=== PATIENT | female | born 1990 | race Caucasian/White ===

== ENCOUNTER 2016-05-21 17:20 | Inpatient (IN) | payer MEDICAID ==
[~2016-05-21] VITALS: Ht 160 cm; Wt 96.0 kg
[~2016-05-21 17:20] MED LIST: PREN-39 PO
[2016-05-21 17:48] VITALS: BP 131/76; PULSE 78; RESP 18
[2016-05-21 20:29] LABS: ADD UMIC YES; URINE BILIRUBIN (Dip) NEGATIVE (NEGATIVE); URINE BLOOD (Dip) NEGATIVE (NEGATIVE); URINE COLOR LT. YELLOW (YELLOW); URINE GLUCOSE (Dip) NEGATIVE (NEGATIVE); URINE KETONES (Dip) NEGATIVE (NEGATIVE); URINE LEUKOCYTE ESTERASE (Dip) 1+ (NEGATIVE); URINE NITRITE (Dip) NEGATIVE (NEGATIVE); URINE TOTAL PROTEIN (Dip) NEGATIVE (NEGATIVE); URINE UROBILINOGEN (Dip) 0.2 E.U./dL (0.1-1.0)
[2016-05-21] MEDS ORDERED: HYDROCODONE/APAP (5/325) TAB PO ONE (20:30)
[2016-05-21 20:53] LABS: BACTERIA,URINE MODERATE; SQUAMOUS EPITHELIAL CELL,UR FEW
[2016-05-21 20:54] LABS: URINE RBCS NONE SEEN /HPF (0)
--- NOTE | 2016-05-21 22:18 | HP ---
Date/Time of Note Date/Time of Note DATE: 05/21/16 TIME: 22:12 OB - History Hx of Present Free Text/Dictation 26 Year-old with SIUP at 36 2/7 wks with h/o precipitous labor presents with a chief complaint of ucs and possible SROM. She has been receiving her care with Dr. Brice. She states good movement. She denies nausea, vomiting, shortness of breath, chest pain, and abdominal pain between contractions, headache, visual changes, vaginal bleeding. Estimated Due Date: Jun 15, 2016 : 4 Para: 3 Spontaneous : 0 Therapeutic : 0 Care: Good Care Ultrasounds: Normal mid trimester US Past Family/Social History * Past Medical, Surgical, Family and Obstetric Histories reviewed from chart. Blood Type: O+ Rubella: immune RPR/VDRL: Negative GBS Status: Unknown HBsAG: Negative OB Admission Exam Vital Signs Vital Signs Vital Signs Date Time Temp Pulse Resp B/P Pulse Ox O2 Delivery O2 Flow Rate FiO2 05/21/16 17:48 98.5 78 18 131/76 97 Room Air Physical Exam HEENT: WNL Heart: Rhythm Normal Lungs: Clear Abdomen: WNL Extremities: Normal Cervical Dilatation: 2cm Effacement: 50% Station: -2 Membranes: Intact Heart Rate: 140's Accelerations: Accelerations Present Decelerations: No Decelerations Varibility: Moderate Contractions on Admission: < 5 Minutes Apart Intensity: Moderate OB Assessment/Plan Other plan: 26 Year-old with SIUP at 36 2/7 wks with h/o precipitous labor presents with ucs and cx changes in 2 hrs interval. - FHR: No sign of metabolic acidosis- Category I - Continious EFM, toco - CBC, blood type and screen - Analgesia options with R/B/A discussed in detail with patient - Epidural per patient request - Please see the orders - O+/Rubella: Immune/GBS: unknown, start PCN for GBS prophylaxis Admission, procedures, expectations, risks and possible complications have been discussed in detail with the patient. Risk of vaginal delivery including but not limited to bleeding, infection, cervical laceration, placental retention, injury to fetus, blood transfusion, blood transfusion related infection, risk of anesthesia, adhesion, cervical laceration, episiotomy/laceration, possible delivery with risk of bleeding, infection, injury to other organs ( bowel, bladder, ureter, vessels, nerves), injury to fetus, blood transfusion, blood transfusion related infection, risk of anesthesia, scar and hernia formation, needs for future , removal of uterus or any other indicated surgery discussed with the patient. She expressed understanding and repeats the risks. All of her questions were answered; all appropriate consents will be signed. PHYSICIAN'S VERIFICATION OF INFORMED CONSENT: The patient was counseled regarding the procedure, its indications, risks, potential complications and alternatives and any questions were answered. Consent was obtained. PLANNED PROCEDURE/TREATMENT: Vaginal delivery with possible vacuum/forceps delivery episiotomy, repair of laceration possible delivery PHYSICIAN'S VERIFICATION OF INFORMED CONSENT FOR BLOOD TRANSFUSION: There is a reasonable possibility that blood transfusion will be necessary as a result of the patient's procedure. I have discussed the following with the patient/patient's legal telemarketing sales representative: An explanation of the benefits and risks of the transfusion of blood or blood products and the possible alternatives. Al questions have been answered to the patient's/patients legal representatives satisfaction. INFORMED CONSENT: The patient has been informed of: - The nature of the proposed care, treatment, services, medic- Potential benefits, risks or side effects, including potential problems related to recuperation. - The likelihood of achieving care treatment and service goals. - Reasonable alternatives to the proposed care, treatment and service. - The relevant risks, benefits and side effects related to alternatives, including the possible results of not receiving care, treatment and services. - When indicated, any limitations on the confidentiality of information learned from or about the patient. - If appropriate, the risks, benefits and alternatives of the drugs to be used for sedation/analgesia including moderate sedation. - If appropriate, patient has been provided information on the risks, benefits and alternatives to the transfusion of blood and/or blood products. EVER ARAYA May 21, 2016 22:18
[2016-05-21] MEDS ORDERED: CARBOPROST 250 MCG INJ IM PRN (22:30)
[2016-05-21] MEDS ORDERED: LIDOCAINE 1% (MPF) 30 ML INJ INJ PRN (22:30)
[2016-05-21] MEDS ORDERED: AMPICILLIN 2 GM/NS (PMX) 100 ML IV ONE (22:30)
[2016-05-21] MEDS ORDERED: BUTORPHANOL 2 MG INJ IV PRN (22:30)
[2016-05-21] MEDS ORDERED: LACTATED RINGER'S 1,000 ML IV PRN (22:30)
[2016-05-21] MEDS ORDERED: IBUPROFEN 600 MG TAB PO PRN (22:30)
[2016-05-21] MEDS ORDERED: MISOPROSTOL 200 MCG TAB PR PRN (22:30)
[2016-05-21] MEDS ORDERED: OXYTOCIN 30 UNITS/LR 500 ML IV SCH ×2 (22:30)
[2016-05-21] MEDS ORDERED: METHYLERGONOVINE 0.2 MG INJ IM PRN (22:30)
[2016-05-21] MEDS ORDERED: OXYTOCIN 30 UNITS/LR 500 ML IV PRN (22:30)
[2016-05-21] MEDS: LACTATED RINGER'S 1,000 ML IV SCH (22:48)
[2016-05-21 23:16] LABS: ADD SCAN DIFF NO
[2016-05-21 23:23] LABS: BASOPHILS % 0.1 % (0.0-2.0); EOSINOPHILS # 0.1 10^3/ul (0.0-0.5); HEMOGLOBIN 12.8 g/dl (12.0-16.0); LYMPHOCYTES # 2.5 10^3/ul (0.8-2.9); LYMPHOCYTES % 31.9 % (15.0-51.0); MEAN CORPUSCULAR HEMOGLOBIN 28.4 pg (29.0-33.0); MEAN CORPUSCULAR HGB CONC 32.8 g/dl (32.0-37.0); MEAN CORPUSCULAR VOLUME 86.5 fl (82.0-101.0); MEAN PLATELET VOLUME 10.8 fl (7.4-10.4); MONOCYTE # 0.6 10^3/ul (0.3-0.9); MONOCYTES % 7.1 % (0.0-11.0); NEUTROPHIL # 4.6 10^3/ul (1.6-7.5); NEUTROPHILS % 59.5 % (39.0-77.0); PLATELET COUNT 202 10^3/UL (140-415); RED BLOOD COUNT 4.51 10^6/ul (4.20-5.40); RED CELL DISTRIBUTION WIDTH 13.1 % (11.5-14.5); WHITE BLOOD COUNT 7.8 10^3/ul (4.8-10.8)
[2016-05-21 23:31] LABS: INR 0.94; PROTIME 12.6 Sec (12.2-14.2)
[2016-05-21 23:32] LABS: PARTIAL THROMBOPLASTIN TIME 28.3 Sec (25.0-35.0)
[2016-05-22] MEDS: AMPICILLIN 1 GM/NS (PMX) 50 ML IV SCH ×2 (02:13→06:27)
[2016-05-22] MEDS: LACTATED RINGER'S 1,000 ML IV SCH ×4 (06:08→23:43)
[2016-05-22] MEDS ORDERED: TERBUTALINE 1 MG/ML INJ SC ONE ×2 (09:30→16:30)
[2016-05-22] MEDS: BETAMET NA PHOS/AC(6 MG/ML) 5ML INJ IM SCH ×2 (09:40→21:01)
[2016-05-22] MEDS ORDERED: NIFEdipine 10 MG CAP PO ONE (16:30)
--- NOTE | 2016-05-22 18:18 | QN ---
Documentation Comment Patient has decreased her uterine contractions and had no cervical change. will continue Nifedipine and observe X 24 hours SAM SANDY MD May 22, 2016 18:18
[2016-05-22] MEDS: NIFEdipine 10 MG CAP PO SCH ×2 (18:36→23:40)
[2016-05-23] MEDS: NIFEdipine 10 MG CAP PO SCH ×3 (05:49→18:08)
[2016-05-23] MEDS: LACTATED RINGER'S 1,000 ML IV SCH ×2 (07:22→15:39)
--- NOTE | 2016-05-23 18:05 | QN ---
Documentation Comment patient has stopped U/C will D/C home SAM SANDY MD May 23, 2016 18:05
--- NOTE | 2016-05-23 18:08 | DS ---
Date/Time of Note Date/Time of Note DATE: 05/23/16 TIME: 18:07 Obstetrical Discharge Record Final Diagnosis Final Diagnosis: not delivered Other Final Diagnosis uterine contractions Complications Tocolytics: Terbutaline, Other (Nifedipine ) Condition on Discharge Physical Assessment Voiding: Yes Bowel Movement: Yes Breast: Soft, non-tender, Filling Fundus: Other (gravid ) Abdomen and Incision: gravid Episiotomy: NA Calf Tenderness: No Patient Condition: Good SAM SANDY MD May 23, 2016 18:08
--- NOTE | 2016-05-23 18:11 | PD.PPDC ---
BLOWER INSULATOR Discharge Instruction Provider Information Physician Information 26 y/o female AT 36 WEEKS WITH LABOR Diagnosis Final Diagnosis: pretrm labor Condition Patient Condition: Good Diet Diet: Resume Regular Diet Activity/Restrictions Activity: Bedrest May Shower Restrictions: No Exercising No Lifting Nothing in the Vagina Follow-up Follow-up with Physician: 1, Day/Days (in clinic) Return to clinic for EXECUTIVE DIRECTOR OF NURSING Instructions: Worsening abdominal pain SAM SANDY MD May 23, 2016 18:11
[2016-05-23] MEDS ORDERED: NIFEdipine PO (18:15)
== END 2016-05-23 18:20 | disposition home or self-care (01) | DRG 778 ==
LOC: L-D 17:20 → OBT 17:20 → L-D 22:00
PROVIDERS: ADMIT Obstetrics & Gynecology; ATTEND Obstetrics & Gynecology
DX: O60.03 Preterm labor without delivery, third trimester (principal); Z3A.36 36 weeks gestation of pregnancy
CPT/HCPCS: 36415; 81001; 81003; 84112; 85025; 85610; 85730; 86592; 86900; 86901; 87340; G0463; J0290; J0702; J3105; J7120

== ENCOUNTER 2016-05-25 16:46 | Inpatient (IN) | payer MEDICAID ==
[~2016-05-25] VITALS: Ht 157.5 cm; Wt 99.1 kg
[~2016-05-25 16:46] MED LIST changes: +NIFEdipine PO; -PREN-39 PO
[2016-05-25 16:52] VITALS: Ht 157.5 cm; Wt 99.1 kg
--- NOTE | 2016-05-25 17:33 | RADRPT ---
PROCEDURE: US OB biophysical profile. CLINICAL INDICATION: Rupture TECHNIQUE: Multiple sonographic images of the pelvis were obtained. The images were reviewed on a PACS workstation. COMPARISON: Obstetrical ultrasound from 02/20/2016 FINDINGS: There is a single viable intrauterine gestation. Cardiac activity is present with 139 beats per min helen. There is a vertex presentation. The placenta is fundal. There is no evidence of placental abruption. There is a low amount of amniotic fluid with an GEORGE = 6.7 cm. Biophysical profile: movement 2/2 tone 2/2. breathing 2/2 GEORGE 2/2 Total 10/30 RPTAT: AA . IMPRESSION: Normal biophysical profile. Low GEORGE of 6.7 cm. Physician Kiet Date Time Electronically viewed and signed by Physician Kiet on 05/25/2016 17:33 /
--- NOTE | 2016-05-25 17:38 | RADRPT ---
PROCEDURE: US OB CLINICAL INDICATION: RUPTURED TECHNIQUE: Multiple sonographic images of the pelvis were obtained. The images were reviewed on a PACS workstation. COMPARISON: Obstetrical ultrasound from 02/20/2016 FINDINGS: The cervix is not well visualized. There is a single viable intrauterine gestation. Cardiac activity is present with 152 beats per minute. There is a vertex presentation. The placenta is fundal. There is no evidence for an abruption or placenta previa. There is a low amount of amniotic fluid with an GEORGE = 6.7 cm. Measurements were made in order to determine age. The results are as follows (cm): BPD =8.91 (36 weeks, 0 days) HC =32.22 (36 weeks, 3 days) AC =35.71 (39 weeks, 4 days) FL =7.11 (36 weeks, 3 days) FL/BPD = 79.9 (normal: 71.0 - 87.0) HC/AC = 0.90 (normal: 0.92 - 1.05) FL/AC = 19.9 (normal: 20.0 - 24.0) Estimated gestational age by ultrasound of approximately 37 weeks, 1 day. The estimated date of delivery by ultrasound is 06/14/2016. Estimated gestational age by LMP of approximately 37 weeks, 0 days. The estimated date of delivery by LMP is 06/15/2016. EFW = 3398 grams (83rd percentile) IMPRESSION: Single viable intrauterine gestation of approximately 37 weeks, 1 day . The estimated date of delivery is 06/14/2016 . Dating by ultrasound is within 1 day of dating by LMP. Dating by BPD yields a gestational age of 36 weeks, 0 days while dating by AC yields a gestational a ge of 39 weeks, 4 days. The HC/AC and FL/AC ratios are minimally below normal, as above. Estimated weight is in the 83rd percentile. Low - normal GEORGE of 6.7 cm. Cephalic presentation. RPTAT: EE Physician Kiet Date Time Electronically viewed and signed by Austyn Ortiz Physician on 05/25/2016 17:37 RA/
[2016-05-25 17:41] VITALS: BP 130/80; PULSE 80; RESP 20
[2016-05-25] MEDS: LACTATED RINGER'S 1,000 ML IV SCH (18:55)
--- NOTE | 2016-05-25 20:19 | TRIAGE ---
OB Triage Datetime Report Generated by CPN: 05/25/2016 20:18 Datetime: 05/25/2016 20:10 Comments: SITTING UP TO EAT DINNER Datetime: 05/25/2016 20:02 Temperature Route: Oral Pain Assessment Pain Scale: 0 Pain Goal: 0 Datetime: 05/25/2016 19:46 Comments: TO ROOM 270 PER W/CH Datetime: 05/25/2016 19:40 Stage of : OB Triage Labor Evaluation Frequency: 5 Monitor Mode: External Duration (sec)2399: 60-110 Quality: Mild Pattern: Normal: <= 5 Contractions in 10 Minutes Resting Tone Elwin: Relaxed Heart Rate FHR Baseline Rate: 145 Monitor Mode: External US FHR Baseline Changes: No Baseline Change Variability: Moderate 6-25 bpm Accelerations: 15X15 Decelerations: None Category: Category I Datetime: 05/25/2016 19:13 Pain Presence: None/Denies Datetime: 05/25/2016 19:12 Assessment Type: Triage Maternal Assessment Level of Consciousness: Fully Conscious DTR's/Clonus: DTRs 2+; No Clonus Headache: Denies Blurred Vision: No Respiratory Effort: Unlabored; Regular Rhythm; Equal Expansion Breath Sounds, Left: Clear and Equal Breath Sounds, Right: Clear and Equal Nausea/Vomiting: Denies RUQ Epigastric Pain: Denies Lower Extremities Edema: Bilateral Lower Extremities Degree: 2+ Upper Extremities Edema: Bilateral Upper Extremities Degree: 1+ Facial Edema: None Fall Risk Assessment History of Falling: (0) No Secondary Diagnosis: (0) No Ambulatory Aid: (0) Bedrest/Nurse Assist IV Therapy: (0) No Gait: (0) Normal/Bedrest/Immobile Mental Status: (0) Oriented to Own Ability Fall Score: 0 Fall Risk Score Definition: No Risk: No action required Datetime: 05/25/2016 19:02 Monitor Mode: External Duration (sec)2399: 6-7 Quality: Mild Pattern: Normal: <= 5 Contractions in 10 Minutes Intensity IUP (mmHg): 80-90 Resting Tone Elwin: Relaxed Heart Rate FHR Baseline Rate: 145 Monitor Mode: External US FHR Baseline Changes: No Baseline Change Variability: Moderate 6-25 bpm Accelerations: 15X15 Decelerations: None Category: Category I Datetime: 05/25/2016 18:32 Labor Evaluation Frequency: 6-7 Monitor Mode: External Duration (sec)2399: 80-90 Quality: Moderate Pattern: Normal: <= 5 Contractions in 10 Minutes Resting Tone [place]: Relaxed Heart Rate FHR Baseline Rate: 145 Monitor Mode: External US FHR Baseline Changes: No Baseline Change Variability: Moderate 6-25 bpm Accelerations: 15X15 Decelerations: Early; Late Category: Category II Datetime: 05/25/2016 18:30 Stage of : OB Triage Vaginal Exam Dilatation (cms): 0.5 Exam By: DR BLILINGS Membrane Status: Intact (Annotations: INTACT PER DR BILLINGS) Datetime: 05/25/2016 17:30 Stage of : OB Triage Labor Evaluation Frequency: IRREG Monitor Mode: External Duration (sec)2399: 70-80 Quality: Mild Pattern: Normal: <= 5 Contractions in 10 Minutes Resting Tone [place]win: Relaxed Heart Rate FHR Baseline Rate: 140 Monitor Mode: External US Variability: Moderate 6-25 bpm Accelerations: 15X15 Decelerations: None Category: Category I Datetime: 05/25/2016 17:08 Membrane Status: Ruptured Membranes Rupture Method: Spontaneous Amniotic Fluid Color: Clear Amniotic Fluid Amount: Large Nitrazine: Positive Datetime: 05/25/2016 17:05 Time of Arrival: 05/25/2016 16:45 EGA: 37.0 Arrived By: Ambulatory Arrived From: Home Chief Complaint: LEAKING SINCE 163905/25/16 (Annotations: Data stored by CPN on behalf of user) Movement: Present Contractions: Denies/Absent Rupture of Membranes: Ruptured (Annotations: Data stored by CPN on behalf of user) Vaginal Bleeding: None Vaginal Discharge: Denies Recent Sexual Intercouse: Denies Abdominal Trauma: Not Applicable Patient Complaints: Other Time Provider Notified: 05/25/2016 17:10 Provider Notified: AWA Initial Plan: SVE, MONITORING, CALL OB FOR FURTHER ORDERS Datetime: 05/25/2016 17:02 Stage of : OB Triage Assessment Type: Triage Maternal Assessment Level of Consciousness: Fully Conscious DTR's/Clonus: DTRs 2+; No Clonus Headache: Denies Blurred Vision: No Respiratory Effort: Unlabored; Regular Rhythm; Equal Expansion Breath Sounds, Left: Clear and Equal Breath Sounds, Right: Clear and Equal Nausea/Vomiting: Denies RUQ Epigastric Pain: Denies Lower Extremities Edema: Bilateral Lower Extremities Degree: 2+ Upper Extremities Edema: Bilateral Upper Extremities Degree: 1+ Facial Edema: None Fall Risk Assessment History of Falling: (0) No Secondary Diagnosis: (0) No Ambulatory Aid: (0) Bedrest/Nurse Assist IV Therapy: (0) No Gait: (0) Normal/Bedrest/Immobile Mental Status: (0) Oriented to Own Ability Fall Score: 0 Fall Risk Score Definition: No Risk: No action required Datetime: 05/25/2016 16:59 Vaginal Exam Dilatation (cms): 3.0 Effacement (%): 60 Station: -3 Exam By: ADRIENNE AWAN Cervix, Consistency: Moderate Cervix, Position: Posterior Presentation 'A': Cephalic Datetime: 05/23/2016 18:06 Labor Evaluation Frequency: 0 Monitor Mode: External Contraction Comments: DENIES FEELING ANY UC'S Heart Rate FHR Baseline Rate: 130 Monitor Mode: External US FHR Baseline Changes: No Baseline Change Variability: Moderate 6-25 bpm Accelerations: 15X15 Decelerations: None Category: Category I Pain Presence: None/Denies Datetime: 05/23/2016 17:12 Labor Evaluation Frequency: 0 Monitor Mode: External Heart Rate FHR Baseline Rate: 130 Monitor Mode: External US FHR Baseline Changes: No Baseline Change Variability: Moderate 6-25 bpm Accelerations: 15X15 Decelerations: None Category: Category I Pain Presence: None/Denies Datetime: 05/23/2016 16:14 Stage of : Labor Labor Evaluation Frequency: 0 Monitor Mode: External Resting Tone [place]: Relaxed Heart Rate FHR Baseline Rate: 135 Monitor Mode: External US Variability: Moderate 6-25 bpm Accelerations: 15X15 Decelerations: None Category: Category I Pain Presence: None/Denies Pain Type: N/A Datetime: 05/23/2016 15:23 Labor Evaluation Frequency: 0 Monitor Mode: External Pattern: Normal: <= 5 Contractions in 10 Minutes Resting Tone [place]: Relaxed Heart Rate FHR Baseline Rate: 145 Monitor Mode: External US Variability: Moderate 6-25 bpm Accelerations: 15X15 Decelerations: None Category: Category I Pain Presence: None/Denies Pain Type: N/A Datetime: 05/23/2016 14:20 Stage of : Labor Labor Evaluation Frequency: 0 Monitor Mode: External Pattern: Normal: <= 5 Contractions in 10 Minutes Resting Tone [place]: Relaxed Heart Rate FHR Baseline Rate: 145 Monitor Mode: External US Variability: Moderate 6-25 bpm Accelerations: 15X15 Decelerations: None Category: Category I Datetime: 05/23/2016 12:58 Stage of : Labor Labor Evaluation Frequency: 0 Monitor Mode: External Pattern: Normal: <= 5 Contractions in 10 Minutes Resting Tone [place]: Relaxed Heart Rate FHR Baseline Rate: 145 Monitor Mode: External US Variability: Moderate 6-25 bpm Accelerations: 15X15 Decelerations: None Pain Presence: None/Denies Pain Type: N/A Membrane Status: Intact Datetime: 05/23/2016 11:51 Stage of : Labor Labor Evaluation Frequency: 0 Monitor Mode: External Resting Tone [place]: Relaxed Heart Rate FHR Baseline Rate: 135 Monitor Mode: External US FHR Baseline Changes: No Baseline Change Variability: Moderate 6-25 bpm Accelerations: 15X15 Decelerations: None Category: Category I Pain Presence: None/Denies Pain Type: N/A Datetime: 05/23/2016 11:25 Stage of : Labor Labor Evaluation Frequency: 0 Monitor Mode: External Resting Tone [place]: Relaxed Heart Rate FHR Baseline Rate: 135 Monitor Mode: External US Accelerations: 15X15 Decelerations: None Category: Category I Pain Presence: None/Denies Pain Type: N/A Datetime: 05/23/2016 10:26 Stage of : Labor Labor Evaluation Frequency: 0 Monitor Mode: External Pattern: Normal: <= 5 Contractions in 10 Minutes Resting Tone [place]: Relaxed Heart Rate FHR Baseline Rate: 135 Monitor Mode: External US Accelerations: 15X15 Decelerations: None Category: Category I Datetime: 05/23/2016 09:23 Stage of : Labor Labor Evaluation Frequency: 1-9 Duration (sec)2399: 30-40 Pattern: Normal: <= 5 Contractions in 10 Minutes Resting Tone [place]: Relaxed Heart Rate FHR Baseline Rate: 125 Monitor Mode: External US Variability: Moderate 6-25 bpm Accelerations: 15X15 Decelerations: None Category: Category I Pain Presence: None/Denies Pain Type: N/A Datetime: 05/23/2016 08:04 Stage of : Labor Labor Evaluation Frequency: X1 Monitor Mode: External Duration (sec)2399: 30 Resting Tone [place]: Relaxed Heart Rate FHR Baseline Rate: 125 Monitor Mode: External US Variability: Moderate 6-25 bpm Accelerations: 15X15 Decelerations: None Category: Category I Pain Presence: None/Denies Pain Type: N/A Datetime: 05/23/2016 07:13 Stage of : Labor Assessment Type: Ongoing Assessment Maternal Assessment Level of Consciousness: Fully Conscious DTR's/Clonus: DTRs 2+; No Clonus Headache: Denies Blurred Vision: No Respiratory Effort: Unlabored; Regular Rhythm; Equal Expansion Breath Sounds, Left: Clear and Equal Breath Sounds, Right: Clear and Equal Nausea/Vomiting: Denies RUQ Epigastric Pain: Denies Lower Extremities Edema: None Degree: None Upper Extremities Edema: None Degree: None Facial Edema: None Fall Risk Assessment History of Falling: (0) No Secondary Diagnosis: (0) No Ambulatory Aid: (0) Bedrest/Nurse Assist IV Therapy: (0) No Gait: (0) Normal/Bedrest/Immobile Mental Status: (0) Oriented to Own Ability Fall Score: 0 Fall Risk Score Definition: No Risk: No action required Labor Evaluation Frequency: X1 Monitor Mode: External Duration (sec)2399: 30-40 Pattern: Normal: <= 5 Contractions in 10 Minutes Resting Tone [place]: Relaxed Heart Rate FHR Baseline Rate: 135 Monitor Mode: External US Variability: Moderate 6-25 bpm Accelerations: 15X15 Decelerations: None Category: Category I Pain Assessment Pain Scale: 0 Pain Presence: None/Denies Pain Type: N/A Pain Goal: 0 Datetime: 05/23/2016 07:00 Labor Evaluation Frequency: NONE Monitor Mode: External Resting Tone [place]: Relaxed Heart Rate FHR Baseline Rate: 130 Monitor Mode: External US Variability: Moderate 6-25 bpm Accelerations: 15X15 Decelerations: None Category: Category I Pain Assessment Pain Scale: 0 Pain Presence: None/Denies Pain Type: N/A Datetime: 05/23/2016 06:00 Labor Evaluation Frequency: NONE Monitor Mode: External Resting Tone [place]: Relaxed Heart Rate FHR Baseline Rate: 130 Monitor Mode: External US Variability: Moderate 6-25 bpm Accelerations: 15X15 Decelerations: None Category: Category I Datetime: 05/23/2016 05:48 Temperature Route: Oral Pain Assessment Pain Scale: 0 Pain Presence: None/Denies Pain Type: N/A Datetime: 05/23/2016 05:00 Labor Evaluation Frequency: NONE Monitor Mode: External Resting Tone [place]: Relaxed Heart Rate FHR Baseline Rate: 125 Monitor Mode: External US Variability: Moderate 6-25 bpm Accelerations: 15X15 Decelerations: None Category: Category I Datetime: 05/23/2016 04:00 Labor Evaluation Frequency: x5 Monitor Mode: External Duration (sec)2399: 60-100 Pattern: Normal: <= 5 Contractions in 10 Minutes Resting Tone [place]: Relaxed Heart Rate FHR Baseline Rate: 125 Monitor Mode: External US Variability: Moderate 6-25 bpm Accelerations: 15X15 Decelerations: None Category: Category I Datetime: 05/23/2016 03:00 Labor Evaluation Frequency: x4 Monitor Mode: External Duration (sec)2399: 60-100 Pattern: Normal: <= 5 Contractions in 10 Minutes Resting Tone [place]: Relaxed Heart Rate FHR Baseline Rate: 125 Monitor Mode: External US Variability: Moderate 6-25 bpm Accelerations: 15X15 Decelerations: None Category: Category I Datetime: 05/23/2016 02:00 Labor Evaluation Frequency: x3 Monitor Mode: External Duration (sec)2399: 60-100 Pattern: Normal: <= 5 Contractions in 10 Minutes Resting Tone [place]: Relaxed Heart Rate FHR Baseline Rate: 120 Monitor Mode: External US Variability: Moderate 6-25 bpm Accelerations: 15X15 Decelerations: None Category: Category I Datetime: 05/23/2016 01:00 Labor Evaluation Frequency: x5 Monitor Mode: External Duration (sec)2399: 60-100 Pattern: Normal: <= 5 Contractions in 10 Minutes Resting Tone [place]: Relaxed Heart Rate FHR Baseline Rate: 130 Monitor Mode: External US Variability: Moderate 6-25 bpm Accelerations: 15X15 Decelerations: None Category: Category I Datetime: 05/23/2016 00:00 Labor Evaluation Frequency: x3 Monitor Mode: External Duration (sec)2399: 60-100 Pattern: Normal: <= 5 Contractions in 10 Minutes Resting Tone [place]: Relaxed Heart Rate FHR Baseline Rate: 135 Monitor Mode: External US Variability: Moderate 6-25 bpm Accelerations: 15X15 Decelerations: None Category: Category I Datetime: 05/22/2016 23:35 Pain Assessment Pain Scale: 0 Pain Presence: None/Denies Pain Type: N/A Datetime: 05/22/2016 23:00 Labor Evaluation Frequency: x1 Monitor Mode: External Duration (sec)2399: 100 Pattern: Normal: <= 5 Contractions in 10 Minutes Resting Tone [place]: Relaxed Heart Rate FHR Baseline Rate: 140 Monitor Mode: External US Variability: Moderate 6-25 bpm Accelerations: 15X15 Decelerations: None Category: Category I Datetime: 05/22/2016 22:00 Labor Evaluation Frequency: NONE Monitor Mode: External Resting Tone [place]: Relaxed Heart Rate FHR Baseline Rate: 140 Monitor Mode: External US Variability: Moderate 6-25 bpm Accelerations: 15X15 Decelerations: None Category: Category I Datetime: 05/22/2016 21:34 Pain Assessment Pain Scale: 3 Pain Presence: Intermittent Pain Type: Cramping Pain Location: Abdomen Datetime: 05/22/2016 21:00 Labor Evaluation Frequency: NONE Monitor Mode: External Resting Tone [place]: Relaxed Heart Rate FHR Baseline Rate: 140 Monitor Mode: External US Variability: Moderate 6-25 bpm Accelerations: 15X15 Decelerations: None Category: Category I Datetime: 05/22/2016 20:00 Labor Evaluation Frequency: Irregular Monitor Mode: External Resting Tone [place]: Relaxed Heart Rate FHR Baseline Rate: 140 Monitor Mode: External US Variability: Moderate 6-25 bpm Accelerations: 15X15 Decelerations: None Category: Category I Datetime: 05/22/2016 19:40 Stage of : Labor Assessment Type: Ongoing Assessment Maternal Assessment Level of Consciousness: Fully Conscious DTR's/Clonus: DTRs 2+; No Clonus Headache: Denies Blurred Vision: No Respiratory Effort: Unlabored; Regular Rhythm; Equal Expansion Breath Sounds, Left: Clear and Equal Breath Sounds, Right: Clear and Equal Nausea/Vomiting: Denies RUQ Epigastric Pain: Denies Lower Extremities Edema: None Degree: None Upper Extremities Edema: None Degree: None Facial Edema: None Fall Risk Assessment History of Falling: (0) No Secondary Diagnosis: (0) No Ambulatory Aid: (0) Bedrest/Nurse Assist IV Therapy: (20) Yes Gait: (0) Normal/Bedrest/Immobile Mental Status: (0) Oriented to Own Ability Fall Score: 20 Fall Risk Score Definition: No Risk: No action required Pain Assessment Pain Scale: 3 Pain Presence: Intermittent Pain Type: Cramping Pain Location: Abdomen Datetime: 05/22/2016 19:34 Temperature Route: Oral Datetime: 05/22/2016 18:27 Stage of : Labor Labor Evaluation Frequency: 1-4 Monitor Mode: External Duration (sec)2399: 30-60 Pattern: Normal: <= 5 Contractions in 10 Minutes Resting Tone [place]: Relaxed Heart Rate FHR Baseline Rate: 145 Monitor Mode: External US Variability: Moderate 6-25 bpm Accelerations: 15X15 Decelerations: None Category: Category I Membrane Status: Intact Datetime: 05/22/2016 17:27 Stage of : Labor Labor Evaluation Frequency: 1-3 Monitor Mode: External Duration (sec)2399: 30-60 Resting Tone [place]: Relaxed Heart Rate FHR Baseline Rate: 150 Monitor Mode: External US Variability: Moderate 6-25 bpm Accelerations: 15X15 Decelerations: None Category: Category I Datetime: 05/22/2016 16:45 Stage of : Labor Labor Evaluation Frequency: 1-4 Monitor Mode: External Duration (sec)2399: 30-60 Resting Tone [place]: Relaxed Heart Rate FHR Baseline Rate: 135 Monitor Mode: External US Variability: Moderate 6-25 bpm Accelerations: 15X15 Decelerations: None Pain Assessment Pain Scale: 4 Pain Presence: Intermittent Pain Type: Contraction Pain Location: Abdomen Pain Goal: 0 Pain Relief Measures: Comfort Measures Datetime: 05/22/2016 16:20 Labor Evaluation Frequency: 5-7 Monitor Mode: External Duration (sec)2399: 60-80 Quality: Mild Pattern: Normal: <= 5 Contractions in 10 Minutes Resting Tone [place]: Relaxed Heart Rate FHR Baseline Rate: 135 Monitor Mode: External US Variability: Moderate 6-25 bpm Accelerations: 15X15 Decelerations: None Pain Assessment Pain Scale: 4 Pain Presence: Intermittent Pain Type: Contraction Pain Location: Abdomen Pain Goal: 4 Pain Relief Measures: Comfort Measures Membrane Status: Intact Datetime: 05/22/2016 15:21 Labor Evaluation Frequency: 15-20 Monitor Mode: External Duration (sec)2399: 30-50 Quality: Mild Pattern: Normal: <= 5 Contractions in 10 Minutes Resting Tone [place]: Relaxed Heart Rate FHR Baseline Rate: 130 Monitor Mode: External US Variability: Moderate 6-25 bpm Accelerations: 15X15 Decelerations: None Pain Assessment Pain Scale: 4 Pain Presence: Intermittent Pain Type: Contraction Pain Location: Abdomen Pain Goal: 4 Pain Relief Measures: Comfort Measures Membrane Status: Intact Datetime: 05/22/2016 15:17 Monitor Mode: External US Comments: MATERNAL PULSE/PT SITTING STAIGHT UP Datetime: 05/22/2016 15:10 Comments: MATERNAL PULSE Datetime: 05/22/2016 14:50 Labor Evaluation Frequency: 6-7 Monitor Mode: External Duration (sec)2399: 60-70 Quality: Mild Pattern: Normal: <= 5 Contractions in 10 Minutes Resting Tone [place]: Relaxed Heart Rate FHR Baseline Rate: 130 Monitor Mode: External US Variability: Moderate 6-25 bpm Accelerations: 15X15 Decelerations: None Pain Assessment Pain Scale: 4 Pain Presence: Intermittent Pain Type: Contraction Pain Location: Abdomen Pain Goal: 4 Pain Relief Measures: Comfort Measures Membrane Status: Intact Datetime: 05/22/2016 13:48 Labor Evaluation Frequency: OCCASSIONAL Monitor Mode: External Duration (sec)2399: 60-70 Quality: Mild Pattern: Normal: <= 5 Contractions in 10 Minutes Resting Tone [place]: Relaxed Heart Rate FHR Baseline Rate: 135 Monitor Mode: External US Variability: Moderate 6-25 bpm Accelerations: 15X15 Decelerations: None Pain Assessment Pain Scale: 4 Pain Presence: Intermittent Pain Type: Contraction Pain Location: Abdomen Pain Goal: 4 Pain Relief Measures: Comfort Measures Membrane Status: Intact Datetime: 05/22/2016 12:57 Labor Evaluation Frequency: 6-13 Monitor Mode: External Duration (sec)2399: 30-80 Quality: Mild Pattern: Normal: <= 5 Contractions in 10 Minutes Resting Tone [place]: Relaxed Heart Rate FHR Baseline Rate: 140 Monitor Mode: External US Variability: Moderate 6-25 bpm Accelerations: 15X15 Decelerations: None Pain Assessment Pain Scale: 4 Pain Presence: Intermittent Pain Type: Contraction Pain Location: Abdomen Pain Goal: 4 Pain Relief Measures: Comfort Measures Membrane Status: Intact Datetime: 05/22/2016 12:00 Labor Evaluation Frequency: 4-8 Monitor Mode: External Duration (sec)2399: 60-120 Quality: Mild Pattern: Normal: <= 5 Contractions in 10 Minutes Resting Tone [place]: Relaxed Heart Rate FHR Baseline Rate: 140 Monitor Mode: External US Variability: Moderate 6-25 bpm Accelerations: 15X15 Decelerations: None Pain Assessment Pain Scale: 4 Pain Presence: Intermittent Pain Type: Contraction Pain Location: Abdomen Pain Goal: 4 Pain Relief Measures: Comfort Measures Membrane Status: Intact Datetime: 05/22/2016 11:16 Labor Evaluation Frequency: 6-13 Monitor Mode: External Duration (sec)2399: 30-80 Quality: Mild Pattern: Normal: <= 5 Contractions in 10 Minutes Resting Tone [place]: Relaxed Heart Rate FHR Baseline Rate: 140 Monitor Mode: External US Variability: Moderate 6-25 bpm Accelerations: 15X15 Decelerations: None Pain Assessment Pain Scale: 4 Pain Presence: Intermittent Pain Type: Contraction Pain Location: Abdomen Pain Goal: 4 Pain Relief Measures: Comfort Measures Membrane Status: Intact Datetime: 05/22/2016 10:38 Labor Evaluation Frequency: 4-17 Monitor Mode: External Duration (sec)2399: 30-80 Quality: Mild Pattern: Normal: <= 5 Contractions in 10 Minutes Resting Tone [place]: Relaxed Heart Rate FHR Baseline Rate: 140 Monitor Mode: External US Variability: Moderate 6-25 bpm Accelerations: 15X15 Decelerations: None Pain Assessment Pain Scale: 4 Pain Presence: Intermittent Pain Type: Contraction Pain Location: Abdomen Pain Goal: 4 Pain Relief Measures: Comfort Measures Pain Assessment Comments: DECREASED PAIN SENSATION SINCE TERBUTALINE Membrane Status: Intact Datetime: 05/22/2016 09:40 Labor Evaluation Frequency: 4-7 Monitor Mode: External Duration (sec)2399: 70-90 Quality: Mild Pattern: Normal: <= 5 Contractions in 10 Minutes Resting Tone [place]: Relaxed Heart Rate FHR Baseline Rate: 140 Monitor Mode: External US Variability: Moderate 6-25 bpm Accelerations: 15X15 Decelerations: None Pain Assessment Pain Scale: 6 Pain Presence: Intermittent Pain Type: Contraction Pain Location: Abdomen Pain Goal: 6 Pain Relief Measures: Comfort Measures Membrane Status: Intact Datetime: 05/22/2016 09:21 Stage of : Labor Datetime: 05/22/2016 09:15 Labor Evaluation Frequency: 2-6 Monitor Mode: External Duration (sec)2399: 40-70 Quality: Mild Pattern: Normal: <= 5 Contractions in 10 Minutes Resting Tone [place]: Relaxed Heart Rate FHR Baseline Rate: 140 Monitor Mode: External US Variability: Moderate 6-25 bpm Accelerations: 15X15 Decelerations: None Pain Assessment Pain Scale: 6 Pain Presence: Intermittent Pain Type: Contraction Pain Location: Abdomen Pain Goal: 6 Pain Relief Measures: Comfort Measures Membrane Status: Intact Datetime: 05/22/2016 08:49 Monitor Mode: External US Datetime: 05/22/2016 08:15 Labor Evaluation Frequency: 5-6 Monitor Mode: External Duration (sec)2399: 40-70 Quality: Mild Pattern: Normal: <= 5 Contractions in 10 Minutes Resting Tone [place]: Relaxed Heart Rate FHR Baseline Rate: 135 Monitor Mode: External US Variability: Moderate 6-25 bpm Accelerations: 15X15 Decelerations: None Pain Assessment Pain Scale: 6 Pain Presence: Intermittent Pain Type: Contraction Pain Location: Abdomen Pain Goal: 6 Pain Relief Measures: Comfort Measures Pain Assessment Comments: states current pain level is acceptable Membrane Status: Intact Datetime: 05/22/2016 07:25 Assessment Type: Ongoing Assessment Maternal Assessment Level of Consciousness: Fully Conscious DTR's/Clonus: DTRs 2+; No Clonus Headache: Denies Blurred Vision: No Respiratory Effort: Unlabored; Regular Rhythm; Equal Expansion Breath Sounds, Left: Clear and Equal Breath Sounds, Right: Clear and Equal Nausea/Vomiting: Denies RUQ Epigastric Pain: Denies Lower Extremities Edema: None Degree: None Upper Extremities Edema: None Degree: None Facial Edema: None Fall Risk Assessment History of Falling: (0) No Secondary Diagnosis: (0) No Ambulatory Aid: (0) Bedrest/Nurse Assist IV Therapy: (20) Yes Gait: (0) Normal/Bedrest/Immobile Mental Status: (0) Oriented to Own Ability Fall Score: 20 Fall Risk Score Definition: No Risk: No action required Labor Evaluation Frequency: 4-6 Monitor Mode: External Duration (sec)2399: 60-90 Quality: Mild Pattern: Normal: <= 5 Contractions in 10 Minutes Resting Tone [place]: Relaxed Heart Rate FHR Baseline Rate: 135 Monitor Mode: External US Variability: Moderate 6-25 bpm Accelerations: 15X15 Decelerations: None Membrane Status: Intact Datetime: 05/22/2016 07:05 Labor Evaluation Frequency: 4-6 Monitor Mode: External Duration (sec)2399: 60-90 Quality: Mild Pattern: Normal: <= 5 Contractions in 10 Minutes Resting Tone [place]: Relaxed Contraction Comments: pt states feeling pain that is tolerable but 6/10 sometimes with contraction s Heart Rate FHR Baseline Rate: 130 Monitor Mode: External US FHR Baseline Changes: No Baseline Change Variability: Moderate 6-25 bpm Accelerations: 15X15 Decelerations: None Category: Category I Datetime: 05/22/2016 05:53 Labor Evaluation Frequency: 4-6 Monitor Mode: External Duration (sec)2399: 60-90 Quality: Mild Pattern: Normal: <= 5 Contractions in 10 Minutes Resting Tone [place]: Relaxed Heart Rate FHR Baseline Rate: 130 Monitor Mode: External US FHR Baseline Changes: No Baseline Change Variability: Moderate 6-25 bpm Accelerations: 15X15 Decelerations: None Category: Category I Datetime: 05/22/2016 05:44 Monitor Mode: External US Datetime: 05/22/2016 05:34 Temperature Route: Oral Pain Assessment Pain Scale: 0 Pain Presence: None/Denies Pain Type: N/A Pain Goal: 0 Pain Assessment Comments: PT SLEEPING Datetime: 05/22/2016 05:16 Pain Assessment Pain Scale: 0 Pain Presence: None/Denies Pain Type: N/A Pain Goal: 0 Pain Assessment Comments: PT SLEEPING, STATES "NO PAIN RIGHT NOW, 6 WITH CONTRACTIONS SOMETIMES" Datetime: 05/22/2016 05:01 Labor Evaluation Frequency: 4-6 Monitor Mode: External Duration (sec)2399: 60-90 Quality: Mild Pattern: Normal: <= 5 Contractions in 10 Minutes Resting Tone [place]: Relaxed Heart Rate FHR Baseline Rate: 130 Monitor Mode: External US FHR Baseline Changes: No Baseline Change Variability: Moderate 6-25 bpm Accelerations: 15X15 Decelerations: None Category: Category I Datetime: 05/22/2016 03:58 Interventions: Side to Side Monitor Mode: External US Datetime: 05/22/2016 03:53 Labor Evaluation Frequency: 4-6 Monitor Mode: External Duration (sec)2399: 60-90 Quality: Mild Pattern: Normal: <= 5 Contractions in 10 Minutes Resting Tone [place]: Relaxed Heart Rate FHR Baseline Rate: 130 Monitor Mode: External US FHR Baseline Changes: No Baseline Change Variability: Moderate 6-25 bpm Accelerations: 15X15 Decelerations: None Category: Category I Datetime: 05/22/2016 03:45 Monitor Mode: External Monitor Mode: External US Datetime: 05/22/2016 03:34 Pain Assessment Pain Scale: 6 Pain Presence: Intermittent Pain Type: Contraction Pain Location: Abdomen Pain Goal: 5 Pain Relief Measures: Comfort Measures Datetime: 05/22/2016 03:00 Labor Evaluation Frequency: 2-4 Monitor Mode: External Duration (sec)2399: 60-120 Quality: Mild Pattern: Normal: <= 5 Contractions in 10 Minutes Resting Tone [place]: Relaxed Heart Rate FHR Baseline Rate: 125 Monitor Mode: External US FHR Baseline Changes: No Baseline Change Variability: Moderate 6-25 bpm Accelerations: 15X15 Decelerations: None Category: Category I Datetime: 05/22/2016 02:34 Pain Assessment Pain Scale: 6 Pain Presence: Intermittent Pain Type: Contraction Pain Location: Abdomen Pain Goal: 5 Pain Relief Measures: Comfort Measures Datetime: 05/22/2016 01:58 Labor Evaluation Frequency: 2-4 Monitor Mode: External Duration (sec)2399: 60-120 Quality: Mild Pattern: Normal: <= 5 Contractions in 10 Minutes Resting Tone [place]: Relaxed Heart Rate FHR Baseline Rate: 125 Monitor Mode: External US FHR Baseline Changes: No Baseline Change Variability: Moderate 6-25 bpm Accelerations: 15X15 Decelerations: None Category: Category I Datetime: 05/22/2016 01:50 Maternal Assessment Level of Consciousness: Fully Conscious DTR's/Clonus: DTRs 2+; No Clonus Headache: Denies Breath Sounds, Left: Clear and Equal Breath Sounds, Right: Clear and Equal Nausea/Vomiting: Denies RUQ Epigastric Pain: Denies Datetime: 05/22/2016 01:48 Temperature Route: Oral Pain Assessment Pain Scale: 6 Pain Presence: Intermittent Pain Type: Contraction Pain Location: Abdomen Pain Goal: 5 Pain Relief Measures: Comfort Measures Pain Assessment Comments: PT REPORTS FEELING PAIN ONLY WITH CONTRACTIONS AND IS TOLERATING OK Datetime: 05/22/2016 01:42 Monitor Mode: External Monitor Mode: External US Datetime: 05/22/2016 01:37 Stage of : Labor Datetime: 05/22/2016 01:00 Labor Evaluation Frequency: 2-4 Monitor Mode: External Duration (sec)2399: 60-70 Quality: Mild Pattern: Normal: <= 5 Contractions in 10 Minutes Resting Tone [place]: Relaxed Heart Rate FHR Baseline Rate: 125 Monitor Mode: External US FHR Baseline Changes: No Baseline Change Variability: Moderate 6-25 bpm Accelerations: 15X15 Decelerations: None Category: Category I Datetime: 05/22/2016 00:00 Labor Evaluation Frequency: 3-4 Monitor Mode: External Duration (sec)2399: 60-80 Quality: Mild Pattern: Normal: <= 5 Contractions in 10 Minutes Resting Tone [place]: Relaxed Heart Rate FHR Baseline Rate: 135 Monitor Mode: External US FHR Baseline Changes: No Baseline Change Variability: Moderate 6-25 bpm Accelerations: 15X15 Decelerations: None Category: Category I Datetime: 05/21/2016 23:07 Assessment Type: Admission Assessment Vaginal Bleeding: None Maternal Assessment Level of Consciousness: Fully Conscious DTR's/Clonus: DTRs 2+; No Clonus Headache: Denies Blurred Vision: No Respiratory Effort: Unlabored; Regular Rhythm; Equal Expansion Breath Sounds, Left: Clear and Equal Breath Sounds, Right: Clear and Equal Nausea/Vomiting: Denies RUQ Epigastric Pain: Denies Facial Edema: None Fall Risk Assessment History of Falling: (0) No Secondary Diagnosis: (0) No Ambulatory Aid: (0) Bedrest/Nurse Assist Gait: (0) Normal/Bedrest/Immobile Mental Status: (0) Oriented to Own Ability Pain Assessment Pain Scale: 6 Pain Location: Abdomen Datetime: 05/21/2016 23:05 Time of Arrival: 05/21/2016 23:05 EGA: 36.4 Arrived By: Ambulatory Arrived From: Home Datetime: 05/21/2016 23:00 Labor Evaluation Frequency: 2-3 Monitor Mode: External Duration (sec)2399: 50-70 Quality: Mild Pattern: Normal: <= 5 Contractions in 10 Minutes Resting Tone [place]: Relaxed Heart Rate FHR Baseline Rate: 135 Monitor Mode: External US FHR Baseline Changes: No Baseline Change Variability: Moderate 6-25 bpm Accelerations: 15X15 Decelerations: None Category: Category I Datetime: 05/21/2016 22:14 Membrane Status: Intact Datetime: 05/21/2016 22:00 Stage of : OB Triage Labor Evaluation Frequency: 2-5.5 Monitor Mode: External Duration (sec)2399: 40-90 Quality: Mild Pattern: Normal: <= 5 Contractions in 10 Minutes Resting Tone [place]: Relaxed Heart Rate FHR Baseline Rate: 130 Monitor Mode: External US FHR Baseline Changes: No Baseline Change Variability: Moderate 6-25 bpm Accelerations: 15X15 Decelerations: None Category: Category I Datetime: 05/21/2016 21:44 Stage of : OB Triage Pain Assessment Pain Scale: 6 Pain Presence: Intermittent Pain Type: Cramping; Contraction Pain Location: Abdomen Pain Relief Measures: Comfort Measures Pain Assessment Comments: Pt denies any relief from [place] _ reports more pain _ uc's Vaginal Exam Dilatation (cms): 2.0 Effacement (%): 50 Station: -3 Exam By: EMPERATRIZ Albrecht Vaginal Bleeding: None Cervix, Consistency: Moderate Cervix, Position: Posterior Datetime: 05/21/2016 21:00 Stage of : OB Triage Labor Evaluation Frequency: 1-5.5 Monitor Mode: External Duration (sec)2399: 40-110 Quality: Mild Pattern: Normal: <= 5 Contractions in 10 Minutes Resting Tone [place]: Relaxed Heart Rate FHR Baseline Rate: 130 Monitor Mode: External US FHR Baseline Changes: No Baseline Change Variability: Moderate 6-25 bpm Accelerations: 15X15 Decelerations: None Category: Category I Datetime: 05/21/2016 20:38 Stage of : OB Triage Pain Assessment Pain Scale: 4 Pain Presence: Intermittent Pain Type: Cramping Pain Location: Abdomen Pain Relief Measures: Pain Medication Given Datetime: 05/21/2016 20:10 Stage of : OB Triage Datetime: 05/21/2016 20:00 Stage of : OB Triage Labor Evaluation Frequency: 2-6 Monitor Mode: External Duration (sec)2399: 40-110 Quality: Mild Pattern: Normal: <= 5 Contractions in 10 Minutes Resting Tone [place]: Relaxed Heart Rate FHR Baseline Rate: 130 Monitor Mode: External US Variability: Moderate 6-25 bpm Accelerations: 15X15 Decelerations: None Category: Category I Datetime: 05/21/2016 19:30 Stage of : OB Triage Datetime: 05/21/2016 19:20 Vaginal Exam Dilatation (cms): 1.5 Effacement (%): 50 Station: -3 Exam By: EMPERARTIZ Albrecht Vaginal Bleeding: None Cervix, Consistency: Moderate Cervix, Position: Posterior Datetime: 05/21/2016 19:18 Stage of : OB Triage Assessment Type: Triage Maternal Assessment Level of Consciousness: Fully Conscious DTR's/Clonus: DTRs 2+; No Clonus Headache: Denies Blurred Vision: No Respiratory Effort: Unlabored; Regular Rhythm; Equal Expansion Breath Sounds, Left: Clear and Equal Breath Sounds, Right: Clear and Equal Nausea/Vomiting: Denies RUQ Epigastric Pain: Denies Lower Extremities Edema: None Degree: None Upper Extremities Edema: None Degree: None Facial Edema: None Temperature Route: Oral Fall Risk Assessment History of Falling: (0) No Secondary Diagnosis: (0) No Ambulatory Aid: (0) Bedrest/Nurse Assist IV Therapy: (0) No Gait: (0) Normal/Bedrest/Immobile Mental Status: (0) Oriented to Own Ability Fall Score: 0 Fall Risk Score Definition: No Risk: No action required Pain Assessment Pain Scale: 4 Pain Presence: Intermittent Pain Type: Cramping Pain Location: Abdomen Pain Relief Measures: Comfort Measures Pain Assessment Comments: Pt reports occasional cramping Datetime: 05/21/2016 18:56 Labor Evaluation Frequency: 2-7 Monitor Mode: External Duration (sec)7039: 50-90 Quality: Mild Pattern: Normal: <= 5 Contractions in 10 Minutes Resting Tone [place]: Relaxed Heart Rate FHR Baseline Rate: 145 FHR Baseline Changes: No Baseline Change Variability: Moderate 6-25 bpm Accelerations: 15X15 Decelerations: None Datetime: 05/21/2016 18:27 Labor Evaluation Frequency: 2-9 Monitor Mode: External Duration (sec)2399: 40-80 Quality: Mild Pattern: Normal: <= 5 Contractions in 10 Minutes Resting Tone [place]: Relaxed Heart Rate FHR Baseline Rate: 135 FHR Baseline Changes: No Baseline Change Variability: Moderate 6-25 bpm Accelerations: 15X15 Decelerations: None Datetime: 05/21/2016 17:45 Time of Arrival: 05/21/2016 17:15 EGA: 36.3 Arrived By: Ambulatory Arrived From: Home Chief Complaint: R/O SROM @1600 Movement: Present Rupture of Membranes: Unsure Vaginal Bleeding: None Vaginal Discharge: Denies Abdominal Trauma: Not Applicable Patient Complaints: Other Initial Plan: EFM x2, ROM+ Datetime: 02/20/2016 15:13 Stage of : OB Triage Labor Evaluation Frequency: 0 Monitor Mode: External Pain Presence: None/Denies Pain Type: N/A Datetime: 02/20/2016 15:04 Stage of : OB Triage Vaginal Exam Dilatation (cms): 0.0 Effacement (%): 50 Datetime: 02/20/2016 15:02 Comments: US removed Datetime: 02/20/2016 14:20 Stage of : OB Triage Assessment Type: Triage Maternal Assessment Level of Consciousness: Fully Conscious DTR's/Clonus: DTRs 2+; No Clonus Headache: Denies Blurred Vision: No Respiratory Effort: Unlabored; Regular Rhythm; Equal Expansion Breath Sounds, Left: Clear and Equal Breath Sounds, Right: Clear and Equal Nausea/Vomiting: Denies RUQ Epigastric Pain: Denies Lower Extremities Edema: None Degree: None Upper Extremities Edema: None Degree: None Facial Edema: None Temperature Route: Oral Fall Risk Assessment History of Falling: (0) No Secondary Diagnosis: (0) No Ambulatory Aid: (0) Bedrest/Nurse Assist IV Therapy: (0) No Gait: (0) Normal/Bedrest/Immobile Mental Status: (0) Oriented to Own Ability Fall Score: 0 Fall Risk Score Definition: No Risk: No action required Labor Evaluation Frequency: 0 Monitor Mode: External Heart Rate FHR Baseline Rate: 135 Monitor Mode: External US Pain Assessment Pain Scale: 0 Pain Presence: None/Denies Pain Type: N/A Datetime: 02/20/2016 14:19 Time of Arrival: 02/20/2016 13:58 EGA: 23.3 Arrived By: Wheelchair Arrived From: Home Chief Complaint: uc's Movement: Present Contractions: Irregular Time Contractions Began: 02/19/2016 20:00 Rupture of Membranes: Denies Vaginal Bleeding: None Vaginal Discharge: Denies Recent Sexual Intercouse: Denies Abdominal Trauma: Not Applicable Patient Complaints: Contractions Time Provider Notified: 02/20/2016 15:00 Provider Notified: Dr. Billings Initial Plan: EFMX 2 , CL, CBC, UA
[2016-05-26] MEDS: LACTATED RINGER'S 1,000 ML IV SCH ×3 (03:17→19:00)
[2016-05-26] MEDS ORDERED: LACTATED RINGER'S 1,000 ML IV SCH (03:25)
[2016-05-26] MEDS ORDERED: MULTIVIT/MIN/FOLATE/IRON/PREN TAB PO SCH ×2 (09:00)
[2016-05-26] MEDS ORDERED: DOCUSATE SODIUM 100 MG CAP PO SCH (09:00)
[2016-05-26] MEDS ORDERED: FERROUS SULFATE (EC) 325 MG TAB PO SCH (09:00)
--- NOTE | 2016-05-26 09:06 | RADRPT ---
PROCEDURE: US OB. CLINICAL INDICATION: Low GEORGE , SROM TECHNIQUE: Transabdominal views of the pelvis are available for review. COMPARISON: 05/25/16 FINDINGS: There is a single intrauterine gestation in a vertex position. The heart rate is present at 152 bpm. The placenta is fundal. The GEORGE measures 6.8 cm. RPTAT: AA IMPRESSION: GEORGE measures 6.8 cm. .Mark Quintanilla MD, MD Date Time Electronically viewed and signed by .Mark Quintanilla MD, MD on 05/26/2016 09:06 .S/
[2016-05-26] MEDS ORDERED: ACETAMINOPHEN 325 MG TAB PO PRN (13:30)
--- NOTE | 2016-05-26 15:35 | HP ---
Date/Time of Note Date/Time of Note DATE: 05/26/16 TIME: 15:31 OB - History Hx of Present Free Text/Dictation Admitted for decreased amniotic fluid at 37 week: RO plus is negative as well as Nitrazine test and pooling Estimated Due Date: Jun 15, 2016 : 4 Para: 3 Care: Good Care Ultrasounds: Normal mid trimester US Obstetrical Complications: None Medical Complications: None Past Family/Social History * Past Medical, Surgical, Family and Obstetric Histories reviewed from chart. OB Admission Exam Vital Signs Vital Signs Vital Signs Date Time Temp Pulse Resp B/P Pulse Ox O2 Delivery O2 Flow Rate FiO2 05/25/16 17:41 98.1 80 20 130/80 Room Air Physical Exam HEENT: WNL Heart: Rhythm Normal Lungs: Clear, Equal Abdomen: WNL Extremities: Normal Reflexes: Normal Cervical Dilatation: Fingertip Effacement: 0% Station: -3 Membranes: Intact Heart Rate: 140's Accelerations: Accelerations Present Decelerations: No Decelerations Varibility: Marked Contractions on Admission: 6-10 Minutes Apart OB Assessment/Plan Other Assessment: 37 weeks gestation ROM ruled out decreased amniotic fluid Other plan: observe for ? leaking SAM SANDY MD May 26, 2016 15:35
--- NOTE | 2016-05-26 15:38 | DS ---
Date/Time of Note Date/Time of Note all test negative: no leaking GEORGE stable will follow x 2 days for GEORGE check DATE: 05/26/16 TIME: 15:35 Obstetrical Discharge Record Final Diagnosis Final Diagnosis: Term not delivered Other Final Diagnosis decreased amniotic fluid Condition on Discharge Physical Assessment Voiding: Yes Bowel Movement: Yes Breast: Soft, non-tender, Filling Fundus: Firm Abdomen and Incision: soft BS + Gravid Episiotomy: na Calf Tenderness: No Patient Condition: Good SAM SANDY MD May 26, 2016 15:38
--- NOTE | 2016-05-26 15:40 | PD.PPDC ---
REGISTERED MASSAGE THERAPIST Discharge Instruction Provider Information Physician Information 26 y/o female admitted for observation ROM ruled out patient has decreased amniotic fluid EFW is normal Diagnosis Final Diagnosis: decreased amnitic fluid Condition Patient Condition: Good Diet Diet: Resume Regular Diet Activity/Restrictions Activity: Normal Activity May Shower Restrictions: Nothing in the Vagina Follow-up Follow-up with Physician: 2, Day/Days (in triage for recheck of GEORGE ) SAM SANDY MD May 26, 2016 15:40
--- NOTE | 2016-05-26 16:23 | RADRPT ---
PROCEDURE: US OB. CLINICAL INDICATION: Size and dates TECHNIQUE: Multiple sonographic images of the pelvis were obtained. Transabdominal imaging only w as performed. The images were reviewed on a PACS workstation. COMPARISON: OB ultrasound dated 05/25/2016 FINDINGS: There is a single live intrauterine gestation. Cardiac activity is present with 141 beats per minut e. position is cephalic. Measurements were made in order to determine age. The results are as follows: BPD = 8.90 cm HC = 32.14 cm AC = 33.43 cm FL = 6.85 cm. Estimated gestational age of approximately 36 weeks 1 day. The estimated date of delivery is 06/22/2016. The EFW = 2967 g, 40.7 %ile. The placenta is fundal. There is no evidence for an abruption or placenta previa. IMPRESSION: 1. Single live intrauterine gestation of approximately 36 weeks 1 day, by ultrasound criteria. 2. The estimated date of delivery is 06/22/2016. 3. The estimated weight is 2967 g, 40.7 %ile. RPTAT: HH .Nani Salinas MD, Date Time Electronically viewed and signed by .Nani Salinas MD, on 05/26/2016 14:18 .G/
--- NOTE | 2016-05-26 20:54 | QN ---
Documentation Comment Laborist Pt seen prior to d/c. HD#2 admitted 2/2 concern for SROM with positive nitrazine , neg ROM plus and GEORGE of 6.7cm on admission. GEORGE repeated today and unchanged at 6.8 despite PO and IV hydration. Pt also jin without cervical dilation and started on Nifedipine. Pt doing well. Denies c/o. Denies feeling UCs, VB or LOF. Reports normal FM VS reviewed Afebrile 122/75 77 Gen: well appearing, NAD CV: RRR, nl s1s2 Resp: CTAB Abd: soft, gravid, NT, NABS Ext: 1+ bilateral LE pitting edema, nontender, symmetric FHT Category 1 [place]: rare UCs A/P: Primary OB plans to d/c pt home tonight on Nifedipine for UCs Pt encouraged to drink plenty of water and to return in 2d for repeat GEORGE Strict precautions for ROM, labor and FKC given. Questions answered to patient' s satisfaction. ROSALBA ALVES MD May 26, 2016 20:54
== END 2016-05-26 21:03 | disposition home or self-care (01) | DRG 782 ==
LOC: L-D 16:46 → OBT 16:46 → OBG 17:10 → OBT 17:10
PROVIDERS: ADMIT Obstetrics & Gynecology; ATTEND Obstetrics & Gynecology
DX: O41.8X30 Other specified disorders of amniotic fluid and membranes, third trimester, not applicable or unspecified (principal); Z3A.37 37 weeks gestation of pregnancy
CPT/HCPCS: 76815; 76816; 76818; 84112; J7120

== ENCOUNTER 2016-05-28 11:54 | Outpatient (CLI) | payer MEDICAID ==
[~2016-05-28] VITALS: Ht 157.5 cm; Wt 95.1 kg
--- NOTE | 2016-05-28 12:33 | RADRPT ---
PROCEDURE: OB ultrasound for biophysical profile with GEORGE. CLINICAL INDICATION: Low GEORGE. TECHNIQUE: Multiple sonographic images of the gravid uterus were obtained. The images were review ed on a PACS workstation. COMPARISON: OB ultrasound dated 05/26/2016. FINDINGS: breathing movement = 2/2 tone = 2/2 motion = 2/2 GEORGE = 2/2 There is a single viable intrauterine gestation with cardiac and a heart rate of 142 bpm. Ther e is a cephalic presentation and a fundal, grade II placenta. There is no evidence of abruption or placenta previa. GEORGE = 8.85 cm IMPRESSION: 1. Single viable intrauterine gestation. 2. Biophysical profile = 88. 3. GEORGE = 8.85 cm. RPTAT: GG .Titus Downs MD, MD Date Time Electronically viewed and signed by .Titus Downs MD, MD on 05/28/2016 12:33 .P/
[2016-05-28 12:38] VITALS: Ht 157.5 cm; Wt 95.1 kg
--- NOTE | 2016-05-28 14:05 | QN ---
Documentation Comment 26 y/o female at 37 weeks seen for FFI because of decreased amniotic fluid GEORGE :8.7cm will follow in 3 days SAM SANDY MD May 28, 2016 14:05
--- NOTE | 2016-05-28 14:06 | PD.PPDC ---
[employer]UC[employer] Discharge Instruction Provider Information Physician Information seen for decreased GEORGE: normal today Diagnosis Final Diagnosis: Normal GEORGE Diet Diet: Resume Regular Diet Activity/Restrictions Activity: Normal Activity May ShowSAM López MD May 28, 2016 14:06
== END 2016-05-28 14:45 | disposition home or self-care (01) ==
LOC: L-D 11:54 → OBT 11:54
PROVIDERS: ATTEND Obstetrics & Gynecology
DX: O41.03X0 Oligohydramnios, third trimester, not applicable or unspecified (principal); Z3A.37 37 weeks gestation of pregnancy
CPT/HCPCS: 76818; Z7500; G0463

== ENCOUNTER 2016-05-30 11:39 | Outpatient (CLI) | payer MEDICAID ==
[~2016-05-30] VITALS: Ht 157.5 cm; Wt 95.2 kg
[2016-05-30 12:42] VITALS: Ht 157.5 cm; Wt 95.2 kg
[2016-05-30 12:43] VITALS: BP 122/78; PULSE 94; RESP 18
--- NOTE | 2016-05-30 14:12 | RADRPT ---
PROCEDURE: US OB biophysical profile. CLINICAL INDICATION: decreased movements, labor TECHNIQUE: Multiple sonographic images of the pelvis were obtained. The images were reviewed on a PACS workstation. COMPARISON: 05/28/2016 FINDINGS: There is a single viable intrauterine gestation. Cardiac activity is present with 135 beats per min [place]. There is a vertex presentation. The placenta is left lateral. There is no evidence of placental abruption. There is a normal amount of amniotic fluid with an GEORGE = 14.4 cm. Biophysical profile: movement 2/2 tone 2/2. breathing 2/2 GEORGE 2/2 Total 10/30 RPTAT: AA . IMPRESSION: Normal biophysical profile. . .Mark Quintanilla MD, MD Date Time Electronically viewed and signed by .Mark Quintanilla MD, MD on 05/30/2016 14:12 .S/
[2016-05-30 17:01] LABS: ADD SCAN DIFF NO
[2016-05-30 17:04] LABS: BASOPHILS % 0.1 % (0.0-2.0); EOSINOPHILS # 0.1 10^3/ul (0.0-0.5); EOSINOPHILS % 0.9 % (0.0-7.0); HEMATOCRIT 39.4 % (37.0-47.0); HEMOGLOBIN 13.1 g/dl (12.0-16.0); LYMPHOCYTES # 2.3 10^3/ul (0.8-2.9); LYMPHOCYTES % 28.8 % (15.0-51.0); MEAN CORPUSCULAR HEMOGLOBIN 28.6 pg (29.0-33.0); MEAN CORPUSCULAR HGB CONC 33.2 g/dl (32.0-37.0); MEAN PLATELET VOLUME 10.6 fl (7.4-10.4); MONOCYTE # 0.6 10^3/ul (0.3-0.9); NEUTROPHIL # 4.9 10^3/ul (1.6-7.5); NEUTROPHILS % 61.6 % (39.0-77.0); PLATELET COUNT 223 10^3/UL (140-415); RED BLOOD COUNT 4.58 10^6/ul (4.20-5.40); RED CELL DISTRIBUTION WIDTH 12.9 % (11.5-14.5); WHITE BLOOD COUNT 7.9 10^3/ul (4.8-10.8)
[2016-05-30 17:30] LABS: ALBUMIN 3.6 g/dl (3.3-4.9); POTASSIUM 3.9 mmol/L (3.5-5.1)
[2016-05-30 17:32] LABS: BILIRUBIN,INDIRECT 0.1 mg/dl (0-1.1); BILIRUBIN,TOTAL 0.1 mg/dl (0.2-1.3); CREATININE 0.5 mg/dl (0.44-1.00)
[2016-05-30 17:33] LABS: ALBUMIN/GLOBULIN RATIO 1.09; CALCIUM 9.4 mg/dl (8.4-10.2); TOTAL PROTEIN 6.9 g/dl (6.1-8.1); URIC ACID 4.6 mg/dl (3.1-7.9)
[2016-05-30 18:03] LABS: INR 0.91; PROTIME 12.3 Sec (12.2-14.2)
[2016-05-30 18:04] LABS: PARTIAL THROMBOPLASTIN TIME 29.2 Sec (25.0-35.0)
--- NOTE | 2016-05-30 19:51 | TRIAGE ---
OB Triage Datetime Report Generated by CPN: 05/30/2016 19:50 Datetime: 05/30/2016 19:00 Labor Evaluation Frequency: X2 Monitor Mode: External Duration (sec)2399: 40-50 Quality: Mild Pattern: Normal: <= 5 Contractions in 10 Minutes Resting Tone [place]: Relaxed Heart Rate FHR Baseline Rate: 135 Monitor Mode: External US FHR Baseline Changes: No Baseline Change Variability: Moderate 6-25 bpm Accelerations: 15X15 Decelerations: None Category: Category I Datetime: 05/30/2016 18:33 Labor Evaluation Frequency: X1 Monitor Mode: External Duration (sec)2399: 40-50 Quality: Mild Pattern: Normal: <= 5 Contractions in 10 Minutes Resting Tone [place]: Relaxed Heart Rate FHR Baseline Rate: 135 Monitor Mode: External US FHR Baseline Changes: No Baseline Change Variability: Moderate 6-25 bpm Accelerations: 15X15 Decelerations: None Category: Category I Datetime: 05/30/2016 18:29 Stage of : OB Triage Pain Assessment Pain Scale: 0 Pain Presence: None/Denies Pain Type: N/A Pain Goal: 0 Pain Relief Measures: Comfort Measures Datetime: 05/30/2016 18:00 Labor Evaluation Frequency: 2-4 Monitor Mode: External Duration (sec)2399: 70-90 Quality: Mild Pattern: Normal: <= 5 Contractions in 10 Minutes Resting Tone [place]: Relaxed Heart Rate FHR Baseline Rate: 140 Monitor Mode: External US FHR Baseline Changes: No Baseline Change Variability: Moderate 6-25 bpm Accelerations: 15X15 Decelerations: None Category: Category I Datetime: 05/30/2016 17:44 Stage of : OB Triage Pain Assessment Pain Scale: 0 Pain Presence: None/Denies Pain Type: N/A Pain Goal: 0 Pain Relief Measures: Comfort Measures Datetime: 05/30/2016 17:30 Labor Evaluation Frequency: 2-3 Monitor Mode: External Duration (sec)2399: 50-60 Quality: Mild Pattern: Normal: <= 5 Contractions in 10 Minutes Resting Tone [place]: Relaxed Heart Rate FHR Baseline Rate: 135 Monitor Mode: External US FHR Baseline Changes: No Baseline Change Variability: Moderate 6-25 bpm Accelerations: 15X15 Decelerations: None Category: Category I Datetime: 05/30/2016 17:00 Labor Evaluation Frequency: 2-4 Monitor Mode: External Duration (sec)2399: 60-70 Quality: Mild Pattern: Normal: <= 5 Contractions in 10 Minutes Resting Tone [place]: Relaxed Heart Rate FHR Baseline Rate: 135 Monitor Mode: External US FHR Baseline Changes: No Baseline Change Variability: Moderate 6-25 bpm Accelerations: 15X15 Decelerations: None Category: Category I Datetime: 05/30/2016 16:28 Stage of : OB Triage Pain Assessment Pain Scale: 0 Pain Presence: None/Denies Pain Type: N/A Pain Goal: 0 Pain Relief Measures: Comfort Measures Pain Assessment Comments: [facility] LABS DRAWN. DR AWA HAGER ON ELEVATED BP. Datetime: 05/30/2016 16:20 Maternal Assessment Level of Consciousness: Fully Conscious DTR's/Clonus: DTRs 2+; No Clonus Headache: Denies Breath Sounds, Left: Clear and Equal Breath Sounds, Right: Clear and Equal Nausea/Vomiting: Denies RUQ Epigastric Pain: Denies Labor Evaluation Frequency: 3-4 Monitor Mode: External Duration (sec)2399: 40-50 Quality: Mild Pattern: Normal: <= 5 Contractions in 10 Minutes Resting Tone [place]: Relaxed Heart Rate FHR Baseline Rate: 135 Monitor Mode: External US FHR Baseline Changes: No Baseline Change Variability: Moderate 6-25 bpm Accelerations: 15X15 Decelerations: None Category: Category I Vaginal Exam Dilatation (cms): 2.0 Effacement (%): 50 Station: -2 Exam By: WNEDY RN Membrane Status: Intact Datetime: 05/30/2016 15:44 Stage of : OB Triage Temperature Route: Oral Pain Assessment Pain Scale: 0 Pain Presence: None/Denies Pain Type: N/A Pain Goal: 0 Pain Assessment Comments: PT DENIES OF ANY PAIN DENIES OF ANY UC'S Datetime: 05/30/2016 15:41 Labor Evaluation Frequency: 2-4 Monitor Mode: External Duration (sec)2399: 50-60 Quality: Mild Pattern: Normal: <= 5 Contractions in 10 Minutes Resting Tone [place]: Relaxed Heart Rate FHR Baseline Rate: 135 Monitor Mode: External US FHR Baseline Changes: No Baseline Change Variability: Moderate 6-25 bpm Accelerations: 15X15 Decelerations: None Category: Category I Membrane Status: Intact Datetime: 05/30/2016 15:10 Labor Evaluation Frequency: 1-2-4 Monitor Mode: External Duration (sec)2399: 70-100 Quality: Mild Pattern: Normal: <= 5 Contractions in 10 Minutes Resting Tone [place]: Relaxed Heart Rate FHR Baseline Rate: 140 Monitor Mode: External US Variability: Moderate 6-25 bpm Accelerations: 15X15 Decelerations: None Category: Category I Datetime: 05/30/2016 15:09 Pain Assessment Pain Scale: 2 Pain Presence: Intermittent Pain Relief Measures: Comfort Measures Membrane Status: Intact Datetime: 05/30/2016 14:50 Vaginal Exam Dilatation (cms): 2.0 Effacement (%): 50 Station: -2 Exam By: SHEREEN AWAN Vaginal Bleeding: None Cervix, Consistency: Moderate Cervix, Position: Midposition Presentation 'A': Unable to Assess Lie 'A': Unable to Assess Datetime: 05/30/2016 14:45 Labor Evaluation Frequency: 3-4 Monitor Mode: External Duration (sec)2399: 60-70 Quality: Mild Pattern: Normal: <= 5 Contractions in 10 Minutes Resting Tone [place]: Relaxed Heart Rate FHR Baseline Rate: 145 Monitor Mode: External US FHR Baseline Changes: No Baseline Change Variability: Moderate 6-25 bpm Accelerations: 15X15 Decelerations: None Category: Category I Datetime: 05/30/2016 14:29 Stage of : OB Triage Temperature Route: Oral Pain Assessment Pain Scale: 0 Pain Presence: None/Denies Pain Type: N/A Pain Goal: 0 Pain Relief Measures: Comfort Measures Datetime: 05/30/2016 13:37 Labor Evaluation Frequency: 3-5 Monitor Mode: External Duration (sec)2399: 40-50 Quality: Mild Pattern: Normal: <= 5 Contractions in 10 Minutes Resting Tone [place]: Relaxed Heart Rate FHR Baseline Rate: 135 Monitor Mode: External US FHR Baseline Changes: No Baseline Change Variability: Moderate 6-25 bpm Accelerations: 15X15 Decelerations: None Category: Category I Membrane Status: Intact Datetime: 05/30/2016 12:54 Maternal Assessment Level of Consciousness: Fully Conscious DTR's/Clonus: DTRs 2+; No Clonus Headache: Denies Blurred Vision: No Breath Sounds, Left: Clear and Equal Breath Sounds, Right: Clear and Equal Nausea/Vomiting: Denies RUQ Epigastric Pain: Denies Facial Edema: None Labor Evaluation Frequency: 3-4 Monitor Mode: External Duration (sec)2399: 40-50 Quality: Mild Pattern: Normal: <= 5 Contractions in 10 Minutes Resting Tone [place]: Relaxed Heart Rate FHR Baseline Rate: 130 Monitor Mode: External US FHR Baseline Changes: No Baseline Change Variability: Moderate 6-25 bpm Accelerations: 15X15 Decelerations: None Category: Category I Pain Assessment Pain Scale: 0 Pain Presence: None/Denies Pain Type: N/A Pain Goal: 0 Pain Relief Measures: Comfort Measures Membrane Status: Intact Datetime: 05/30/2016 12:24 Labor Evaluation Frequency: 3-4 Monitor Mode: External Duration (sec)2399: 50-60 Quality: Mild Pattern: Normal: <= 5 Contractions in 10 Minutes Resting Tone [place]: Relaxed Heart Rate FHR Baseline Rate: 145 Monitor Mode: External US FHR Baseline Changes: No Baseline Change Variability: Moderate 6-25 bpm Accelerations: 15X15 Decelerations: None Category: Category I Datetime: 05/30/2016 12:23 Time of Arrival: 05/30/2016 11:05 EGA: 37.5 Arrived By: Ambulatory Arrived From: Home Chief Complaint: DFM Movement: Decreased Contractions: Irregular Rupture of Membranes: Denies Vaginal Bleeding: None Vaginal Discharge: Denies Recent Sexual Intercouse: Denies Abdominal Trauma: Not Applicable Patient Complaints: Contractions Datetime: 05/30/2016 12:07 Maternal Assessment Level of Consciousness: Fully Conscious DTR's/Clonus: DTRs 2+; No Clonus Headache: Denies Blurred Vision: No Respiratory Effort: Unlabored Breath Sounds, Left: Clear and Equal Breath Sounds, Right: Clear and Equal Nausea/Vomiting: Denies RUQ Epigastric Pain: Denies Facial Edema: None Labor Evaluation Frequency: 1 Monitor Mode: External Duration (sec)2399: 90 Quality: Mild Pattern: Normal: <= 5 Contractions in 10 Minutes Resting Tone [place]: Relaxed Heart Rate FHR Baseline Rate: 150 Monitor Mode: External US FHR Baseline Changes: No Baseline Change Variability: Moderate 6-25 bpm Accelerations: 15X15 Decelerations: None Category: Category I Membrane Status: Intact Amniotic Fluid Odor: None Datetime: 05/28/2016 14:34 Stage of : OB Triage Datetime: 05/28/2016 14:31 Labor Evaluation Frequency: IRREG Monitor Mode: External Duration (sec)2399: 60-70 Quality: Mild Pattern: Normal: <= 5 Contractions in 10 Minutes Resting Tone [place]: Relaxed Heart Rate FHR Baseline Rate: 135 Monitor Mode: External US Variability: Moderate 6-25 bpm Accelerations: 10X10 Decelerations: None Category: Category I Pain Assessment Pain Scale: 0 Pain Presence: None/Denies Pain Type: N/A Pain Goal: 3 Pain Relief Measures: Comfort Measures Datetime: 05/28/2016 13:47 Stage of : OB Triage Datetime: 05/28/2016 13:32 Labor Evaluation Frequency: IRREG Monitor Mode: External Duration (sec)2399: 40-60 Quality: Mild Pattern: Normal: <= 5 Contractions in 10 Minutes Resting Tone [place]: Relaxed Heart Rate FHR Baseline Rate: 135 Monitor Mode: External US Variability: Moderate 6-25 bpm Accelerations: 10X10 Decelerations: None Category: Category I Pain Assessment Pain Scale: 0 Pain Presence: None/Denies Pain Type: N/A Pain Goal: 3 Pain Relief Measures: Comfort Measures Datetime: 05/28/2016 12:34 Stage of : OB Triage Assessment Type: Triage Maternal Assessment Level of Consciousness: Fully Conscious DTR's/Clonus: DTRs 2+; No Clonus Headache: Denies Blurred Vision: No Respiratory Effort: Unlabored; Regular Rhythm; Equal Expansion Breath Sounds, Left: Clear and Equal Breath Sounds, Right: Clear and Equal Nausea/Vomiting: Denies RUQ Epigastric Pain: Denies Lower Extremities Edema: None Degree: None Upper Extremities Edema: None Degree: None Facial Edema: None Temperature Route: Axillary Fall Risk Assessment History of Falling: (0) No Secondary Diagnosis: (0) No Ambulatory Aid: (0) Bedrest/Nurse Assist IV Therapy: (0) No Gait: (0) Normal/Bedrest/Immobile Mental Status: (0) Oriented to Own Ability Fall Score: 0 Fall Risk Score Definition: No Risk: No action required Labor Evaluation Frequency: 0 Monitor Mode: External Resting Tone [place]: Relaxed Heart Rate FHR Baseline Rate: 145 Monitor Mode: External US Variability: Moderate 6-25 bpm Decelerations: None Category: Category I Pain Assessment Pain Scale: 0 Pain Presence: None/Denies Pain Type: N/A Datetime: 05/28/2016 12:32 Time of Arrival: 05/28/2016 11:49 EGA: 37.3 Arrived By: Ambulatory Arrived From: Home Chief Complaint: STATES SENT IN FOR LOW [place], DENIES LEAKING OF FLUID, BLEEDING, OR UC'S Movement: Present Contractions: Denies/Absent Rupture of Membranes: Denies Vaginal Bleeding: None Vaginal Discharge: Denies Recent Sexual Intercouse: Denies Abdominal Trauma: Not Applicable Time Provider Notified: 05/28/2016 13:47 Provider Notified: AWA Initial Plan: MONITOR, BPP Datetime: 05/26/2016 20:55 Labor Evaluation Frequency: 0 Monitor Mode: External Heart Rate FHR Baseline Rate: 130 Monitor Mode: External US FHR Baseline Changes: No Baseline Change Variability: Moderate 6-25 bpm Accelerations: 15X15 Category: Category I Datetime: 05/26/2016 19:20 Assessment Type: Ongoing Assessment Maternal Assessment Level of Consciousness: Fully Conscious Headache: Denies Blurred Vision: No Respiratory Effort: Unlabored; Regular Rhythm; Equal Expansion Nausea/Vomiting: Denies RUQ Epigastric Pain: Denies Lower Extremities Edema: None Upper Extremities Edema: None Facial Edema: None Temperature Route: Oral Fall Risk Assessment History of Falling: (0) No Secondary Diagnosis: (0) No Ambulatory Aid: (0) Bedrest/Nurse Assist IV Therapy: (20) Yes Gait: (0) Normal/Bedrest/Immobile Mental Status: (0) Oriented to Own Ability Fall Score: 20 Fall Risk Score Definition: No Risk: No action required Monitor Mode: External Monitor Mode: External US Pain Assessment Pain Scale: 0 Pain Goal: 0 Datetime: 05/26/2016 19:00 Stage of : Antepartum Labor Evaluation Frequency: 0 Monitor Mode: External Resting Tone [place]: Relaxed Heart Rate FHR Baseline Rate: 135 Monitor Mode: External US FHR Baseline Changes: No Baseline Change Variability: Moderate 6-25 bpm Accelerations: 15X15 Decelerations: None Category: Category I Pain Assessment Pain Scale: 0 Pain Goal: 4 Vaginal Bleeding: None Datetime: 05/26/2016 18:00 Stage of : Antepartum Labor Evaluation Frequency: 0 Monitor Mode: External Resting Tone [place]: Relaxed Heart Rate FHR Baseline Rate: 135 Monitor Mode: External US FHR Baseline Changes: No Baseline Change Variability: Moderate 6-25 bpm Accelerations: 15X15 Decelerations: None Category: Category I Pain Assessment Pain Scale: 0 Pain Goal: 4 Vaginal Bleeding: None Datetime: 05/26/2016 16:56 Stage of : Antepartum Labor Evaluation Frequency: 0 Monitor Mode: External Resting Tone [place]: Relaxed Heart Rate FHR Baseline Rate: 135 Monitor Mode: External US FHR Baseline Changes: No Baseline Change Variability: Moderate 6-25 bpm Accelerations: 15X15 Decelerations: None Category: Category I Pain Assessment Pain Scale: 0 Pain Goal: 4 Vaginal Bleeding: None Datetime: 05/26/2016 16:00 Stage of : Antepartum Labor Evaluation Frequency: 0 Monitor Mode: External Resting Tone [place]: Relaxed Heart Rate FHR Baseline Rate: 135 Monitor Mode: External US FHR Baseline Changes: No Baseline Change Variability: Moderate 6-25 bpm Accelerations: 15X15 Decelerations: None Category: Category I Pain Assessment Pain Scale: 0 Pain Goal: 4 Vaginal Bleeding: None Datetime: 05/26/2016 15:00 Stage of : Antepartum Labor Evaluation Frequency: 0 Monitor Mode: External Resting Tone [place]: Relaxed Heart Rate FHR Baseline Rate: 135 Monitor Mode: External US FHR Baseline Changes: No Baseline Change Variability: Moderate 6-25 bpm Accelerations: 15X15 Decelerations: None Category: Category I Pain Assessment Pain Scale: 0 Pain Goal: 4 Vaginal Bleeding: None Datetime: 05/26/2016 14:00 Stage of : Antepartum Labor Evaluation Frequency: 0 Monitor Mode: External Resting Tone [place]: Relaxed Heart Rate FHR Baseline Rate: 135 (Annotations: LOSS OF CONTACT) Monitor Mode: External US FHR Baseline Changes: No Baseline Change Variability: Moderate 6-25 bpm Accelerations: 15X15 Decelerations: None Pain Assessment Pain Scale: 0 Pain Goal: 4 Pain Relief Measures: 2 EXTRA PILLOWS GIVEN Vaginal Bleeding: None Datetime: 05/26/2016 13:00 Stage of : Antepartum Labor Evaluation Frequency: 0 Monitor Mode: External Resting Tone [place]: Relaxed Heart Rate FHR Baseline Rate: 135 (Annotations: LOSS OF CONTACT PT EATING LUNCH) Monitor Mode: External US FHR Baseline Changes: No Baseline Change Variability: Moderate 6-25 bpm Accelerations: 15X15 Decelerations: None Pain Assessment Pain Scale: 0 Pain Goal: 4 Pain Relief Measures: 2 EXTRA PILLOWS GIVEN Vaginal Bleeding: None Datetime: 05/26/2016 12:00 Stage of : Antepartum Labor Evaluation Frequency: 0 Monitor Mode: External Resting Tone [place]: Relaxed Heart Rate FHR Baseline Rate: 135 Monitor Mode: External US FHR Baseline Changes: No Baseline Change Variability: Moderate 6-25 bpm Accelerations: 15X15 Decelerations: None Category: Category I Pain Assessment Pain Scale: 0 Pain Goal: 4 Pain Relief Measures: 2 EXTRA PILLOWS GIVEN Vaginal Bleeding: None Datetime: 05/26/2016 11:00 Stage of : Antepartum Labor Evaluation Frequency: X6 Monitor Mode: External Duration (sec)2399: 80 Quality: Mild Resting Tone [place]: Relaxed Contraction Comments: PT DENIES FEELING HER UC'S Heart Rate FHR Baseline Rate: 135 (Annotations: LOSS OF CONTACT) Monitor Mode: External US FHR Baseline Changes: No Baseline Change Variability: Moderate 6-25 bpm Accelerations: 15X15 Decelerations: None Category: Category I Pain Assessment Pain Scale: 0 Pain Goal: 4 Pain Relief Measures: 2 EXTRA PILLOWS GIVEN Vaginal Bleeding: None Datetime: 05/26/2016 10:00 Stage of : Antepartum Labor Evaluation Frequency: X7 Monitor Mode: External Duration (sec)2399: 80 Quality: Mild Resting Tone [place]: Relaxed Heart Rate FHR Baseline Rate: 135 Monitor Mode: External US FHR Baseline Changes: No Baseline Change Variability: Moderate 6-25 bpm Accelerations: 15X15 Decelerations: None Category: Category I Pain Assessment Pain Scale: 2 Pain Presence: Intermittent Pain Type: Contraction Pain Location: Abdomen Pain Goal: 4 Pain Relief Measures: Comfort Measures Vaginal Bleeding: None Datetime: 05/26/2016 09:00 Stage of : Antepartum Labor Evaluation Frequency: X5 Monitor Mode: External Duration (sec)2399: 80 Quality: Mild Resting Tone [place]: Relaxed Heart Rate FHR Baseline Rate: 135 Monitor Mode: External US FHR Baseline Changes: No Baseline Change Variability: Moderate 6-25 bpm Accelerations: 15X15 Decelerations: None Category: Category I Pain Assessment Pain Scale: 2 Pain Presence: Intermittent Pain Type: Contraction Pain Location: Abdomen Pain Goal: 4 Pain Relief Measures: Comfort Measures Vaginal Bleeding: None Datetime: 05/26/2016 08:00 Assessment Type: Ongoing Assessment Maternal Assessment Level of Consciousness: Fully Conscious Headache: Denies Blurred Vision: No Respiratory Effort: Unlabored; Regular Rhythm; Equal Expansion Breath Sounds, Left: Clear and Equal Breath Sounds, Right: Clear and Equal Nausea/Vomiting: Denies RUQ Epigastric Pain: Denies Lower Extremities Edema: Bilateral Lower Extremities Degree: 1+ Upper Extremities Edema: None Facial Edema: None Fall Risk Assessment History of Falling: (0) No Secondary Diagnosis: (0) No Ambulatory Aid: (0) Bedrest/Nurse Assist IV Therapy: (20) Yes Gait: (0) Normal/Bedrest/Immobile Mental Status: (0) Oriented to Own Ability Fall Score: 20 Fall Risk Score Definition: No Risk: No action required Datetime: 05/26/2016 07:56 Stage of : Antepartum Labor Evaluation Frequency: x7 Monitor Mode: External Duration (sec)2399: 80 Quality: Mild Resting Tone [place]: Relaxed Heart Rate FHR Baseline Rate: 135 Monitor Mode: External US FHR Baseline Changes: No Baseline Change Variability: Moderate 6-25 bpm Accelerations: 15X15 Decelerations: None Category: Category I Pain Assessment Pain Scale: 2 Pain Presence: Intermittent Pain Type: Contraction Pain Location: Abdomen Pain Relief Measures: Comfort Measures Vaginal Bleeding: None Datetime: 05/26/2016 07:00 Labor Evaluation Frequency: 0 Monitor Mode: External Heart Rate FHR Baseline Rate: 130 Monitor Mode: External US FHR Baseline Changes: No Baseline Change Variability: Moderate 6-25 bpm Accelerations: 15X15 Decelerations: None Category: Category I Datetime: 05/26/2016 06:17 Temperature Route: Oral Pain Assessment Pain Scale: 0 Pain Goal: 0 Datetime: 05/26/2016 06:00 Labor Evaluation Frequency: X6 Monitor Mode: External Duration (sec)2399: 80 Quality: Mild Resting Tone [place]: Relaxed Heart Rate FHR Baseline Rate: 130 Monitor Mode: External US FHR Baseline Changes: No Baseline Change Variability: Moderate 6-25 bpm Accelerations: 15X15 Category: Category I Datetime: 05/26/2016 05:00 Labor Evaluation Frequency: IRREG Monitor Mode: External Duration (sec)2399: 40-80 Quality: Mild Resting Tone [place]: Relaxed Heart Rate FHR Baseline Rate: 130 Monitor Mode: External US FHR Baseline Changes: No Baseline Change Variability: Moderate 6-25 bpm Accelerations: 15X15 Decelerations: None Category: Category I Datetime: 05/26/2016 04:00 Labor Evaluation Frequency: Q2-6 Monitor Mode: External Duration (sec)2399: 30-90 Quality: Mild Resting Tone [place]: Relaxed Heart Rate FHR Baseline Rate: 130 Monitor Mode: External US FHR Baseline Changes: No Baseline Change Variability: Moderate 6-25 bpm Accelerations: 15X15 Decelerations: None Category: Category I Datetime: 05/26/2016 03:00 Labor Evaluation Frequency: Q3-7 Monitor Mode: External Duration (sec)2399: 30-90 Quality: Mild Resting Tone [place]: Relaxed Heart Rate FHR Baseline Rate: 130 Monitor Mode: External US FHR Baseline Changes: No Baseline Change Variability: Moderate 6-25 bpm Accelerations: 15X15 Decelerations: None Category: Category I Datetime: 05/26/2016 02:00 Labor Evaluation Frequency: Q4-6 Monitor Mode: External Duration (sec)2399: 70-110 Quality: Mild Resting Tone [place]: Relaxed Heart Rate FHR Baseline Rate: 130 Monitor Mode: External US FHR Baseline Changes: No Baseline Change Variability: Moderate 6-25 bpm Accelerations: 15X15 Decelerations: None Category: Category I Datetime: 05/26/2016 01:00 Labor Evaluation Frequency: Q3-6 Monitor Mode: External Duration (sec)2399: 70-110 Quality: Mild Resting Tone [place]: Relaxed Heart Rate FHR Baseline Rate: 135 Monitor Mode: External US FHR Baseline Changes: No Baseline Change Variability: Moderate 6-25 bpm Accelerations: 15X15 Decelerations: None Category: Category I Datetime: 05/26/2016 00:00 Temperature Route: Oral Labor Evaluation Frequency: Q4-6 Monitor Mode: External Duration (sec)2399: 50-110 Quality: Mild Resting Tone [place]: Relaxed Heart Rate FHR Baseline Rate: 140 Monitor Mode: External US FHR Baseline Changes: No Baseline Change Variability: Moderate 6-25 bpm Accelerations: 15X15 Decelerations: None Category: Category I Pain Assessment Pain Scale: 0 Pain Goal: 0 Datetime: 05/25/2016 23:58 Vaginal Exam Dilatation (cms): 1.0 Effacement (%): 50 Station: -4 Exam By: VB Vaginal Bleeding: None Cervix, Consistency: Soft Cervix, Position: Midposition Presentation 'A': Cephalic Lie 'A': Unable to Assess Datetime: 05/25/2016 22:06 Labor Evaluation Frequency: Q4-7 Monitor Mode: External Duration (sec)2399: 70-120 Quality: Mild Resting Tone [place]: Relaxed Heart Rate FHR Baseline Rate: 140 Monitor Mode: External US FHR Baseline Changes: No Baseline Change Variability: Moderate 6-25 bpm Accelerations: 15X15 Decelerations: None Category: Category I Datetime: 05/25/2016 21:00 Labor Evaluation Frequency: Q3-5 Monitor Mode: External Duration (sec)2399: 50-120 Quality: Mild Resting Tone [place]: Relaxed Heart Rate FHR Baseline Rate: 140 Monitor Mode: External US FHR Baseline Changes: No Baseline Change Variability: Moderate 6-25 bpm Accelerations: 15X15 Decelerations: None Category: Category I Datetime: 05/25/2016 20:37 Accelerations: None Datetime: 05/25/2016 20:30 Assessment Type: Admission Assessment Vaginal Bleeding: None Maternal Assessment Level of Consciousness: Fully Conscious Headache: Denies Blurred Vision: No Respiratory Effort: Unlabored; Regular Rhythm; Equal Expansion Breath Sounds, Left: Clear and Equal Breath Sounds, Right: Clear and Equal Nausea/Vomiting: Denies RUQ Epigastric Pain: Denies Lower Extremities Edema: Bilateral Lower Extremities Upper Extremities Edema: None Facial Edema: None Fall Risk Assessment History of Falling: (0) No Secondary Diagnosis: (0) No Ambulatory Aid: (0) Bedrest/Nurse Assist IV Therapy: (20) Yes Gait: (0) Normal/Bedrest/Immobile Mental Status: (0) Oriented to Own Ability Fall Score: 20 Fall Risk Score Definition: No Risk: No action required Labor Evaluation Frequency: 3-5 Quality: Mild Pain Assessment Pain Scale: 0 Pain Presence: None/Denies Datetime: 05/25/2016 20:00 Labor Evaluation Frequency: Q3-5 Monitor Mode: External Duration (sec)2399: 90-120 Quality: Mild Resting Tone [place]: Relaxed Heart Rate FHR Baseline Rate: 140 Monitor Mode: External US FHR Baseline Changes: No Baseline Change Variability: Moderate 6-25 bpm Accelerations: 15X15 Decelerations: None Category: Category I Datetime: 05/25/2016 19:12 Fall Score: 0 Fall Risk Score Definition: No Risk: No action required Datetime: 05/25/2016 17:05 EGA: 37.0 Datetime: 05/25/2016 17:02 Fall Score: 0 Fall Risk Score Definition: No Risk: No action required Datetime: 05/23/2016 07:13 Fall Score: 0 Fall Risk Score Definition: No Risk: No action required Datetime: 05/22/2016 19:40 Fall Score: 20 Fall Risk Score Definition: No Risk: No action required Datetime: 05/22/2016 07:25 Fall Score: 20 Fall Risk Score Definition: No Risk: No action required Datetime: 05/21/2016 23:05 EGA: 36.4 Datetime: 05/21/2016 19:18 Fall Score: 0 Fall Risk Score Definition: No Risk: No action required Datetime: 05/21/2016 17:45 EGA: 36.3 Datetime: 02/20/2016 14:20 Fall Score: 0 Fall Risk Score Definition: No Risk: No action required Datetime: 02/20/2016 14:19 EGA: 23.3
== END 2016-05-30 19:35 | disposition home or self-care (01) ==
LOC: OBT 11:39 → L-D 11:40 → OBT 19:35
PROVIDERS: ATTEND Obstetrics & Gynecology
DX: O60.03 Preterm labor without delivery, third trimester (principal); O36.8130 Decreased fetal movements, third trimester, not applicable or unspecified; Z3A.37 37 weeks gestation of pregnancy
CPT/HCPCS: 36415; 76818; 80053; 84560; 85025; 85384; 85610; 85730; Z7500; G0463

== ENCOUNTER 2016-06-01 10:49 | Outpatient (CLI) | payer MEDICAID ==
--- NOTE | 2016-05-30 22:35 | QN ---
Documentation Comment 26-year-old with IUP at 37 weeks and 5 days presented to triage with complaint of decreased movement. She was noted to have regular contractions every 3-4 minutes as well as some occasional borderline elevated blood pressure. She denied any leaking of fluid, vaginal bleeding, headache, blurred vision or epigastric pain or right upper quadrant pain. She had serial blood pressure check. Her blood pressures were mostly in the range of 110-130/60-70. She denied any symptom. Physical examination: General appearance: A&O, NAD Abdomen: Soft, gravid, nontender, fundal height consistent with gestational age NST: Category 1 BPP: 10/30 GEORGE: 14.4 Cervical exam 250/-2 Repeat exam after observation for about 2-3 hour did not show any change PIH labs negative PROCEDURE: US OB biophysical profile. CLINICAL INDICATION: decreased movements, labor TECHNIQUE: Multiple sonographic images of the pelvis were obtained. The images were reviewed on a PACS workstation. COMPARISON: 05/28/2016 FINDINGS: There is a single viable intrauterine gestation. Cardiac activity is present with 135 beats per minute. There is a vertex presentation. The placenta is left lateral. There is no evidence of placental abruption. There is a normal amount of amniotic fluid with an GEORGE = 14.4 cm. Biophysical profile: movement 2/2 tone 2/2. breathing 2/2 GEORGE 2/2 Total 10/30 RPTAT: AA . IMPRESSION: Normal biophysical profile. Assessment: IUP at 37 weeks and 5 days Decreased movement, testing reassuring contractions, but no cervical change. Not in labor Random occasional borderline blood pressures. asymptomatic. Majority of blood pressures are in normal range. PIH labs are negative Strict preeclampsia precaution, kick counts, labor precaution discussed with the patient in detail Patient was advised to RTC in 2 days for NST and repeat blood pressure check Follow-up with clinic in 2-3 days after her next appointment to triage recommended Patient verbalized understanding and desires to comply with all the instructions MARIA ELENA FRITZ MD May 30, 2016 22:35
[2016-06-01 11:02] VITALS: BP 134/77; PULSE 93; RESP 18
--- NOTE | 2016-06-01 11:55 | RADRPT ---
PROCEDURE: US OB biophysical profile. CLINICAL INDICATION: decreased movements TECHNIQUE: Multiple sonographic images of the pelvis were obtained. The images were reviewed on a PACS workstation. COMPARISON: 05/30/16 FINDINGS: There is a single viable intrauterine gestation. Cardiac activity is present with 154 beats per min helen. There is a vertex presentation. The placenta is fundal. There is no evidence of placental abruption. There is possible hydronephrosis in one of the kidneys. There is a normal amount of amniotic fluid with an GEORGE = 10.2 cm. Biophysical profile: movement 2/2 tone 2/2. breathing 2/2 GEORGE 2/2 Total 10/30 RPTAT: AA . IMPRESSION: Normal biophysical profile. Possible hydronephrosis in one of the kidneys. . Dedicated anatomic survey is recommended. .Mark Quintanilla MD, Date Time Electronically viewed and signed by .Mark Quintanilla MD, on 06/01/2016 11:55 .S/
--- NOTE | 2016-06-01 12:40 | TRIAGE ---
OB Triage Datetime Report Generated by CPN: 06/01/2016 12:40 Datetime: 06/01/2016 11:29 Frequency: x1 contraction in last half hour Monitor Mode: External Duration (sec)2399: 100 Quality: Mild Pattern: Normal: <= 5 Contractions in 10 Minutes Resting Tone Hyde: Relaxed FHR Baseline Rate: 140 Monitor Mode: External US FHR Baseline Changes: No Baseline Change Variability: Moderate 6-25 bpm Accelerations: 15X15 Decelerations: None Category: Category I Pain Presence: None/Denies Datetime: 06/01/2016 11:08 Time of Arrival: 06/01/2016 10:40 EGA: 38.0 Arrived By: Ambulatory Arrived From: Home Chief Complaint: Follow up for elevated BP Movement: Decreased Contractions: Denies/Absent Rupture of Membranes: Denies Vaginal Bleeding: None Vaginal Discharge: Denies Recent Sexual Intercouse: Denies Abdominal Trauma: Not Applicable Patient Complaints: Other Time Provider Notified: 06/01/2016 11:12 Provider Notified: Yuniel Initial Plan: NST, BPP Datetime: 06/01/2016 11:00 Assessment Type: Triage Level of Consciousness: Fully Conscious DTR's/Clonus: DTRs 2+; No Clonus Headache: Denies Blurred Vision: No Respiratory Effort: Unlabored; Regular Rhythm; Equal Expansion Breath Sounds, Left: Clear and Equal Breath Sounds, Right: Clear and Equal Nausea/Vomiting: Denies RUQ Epigastric Pain: Denies Lower Extremities Edema: Bilateral Lower Extremities Degree: 1+ Upper Extremities Edema: None Degree: None Facial Edema: None History of Falling: (0) No Secondary Diagnosis: (0) No Ambulatory Aid: (0) Bedrest/Nurse Assist IV Therapy: (0) No Gait: (0) Normal/Bedrest/Immobile Mental Status: (0) Oriented to Own Ability Fall Score: 0 Fall Risk Score Definition: No Risk: No action required Datetime: 06/01/2016 10:50 Stage of : OB Triage
== END 2016-06-01 12:35 | disposition home or self-care (01) ==
LOC: L-D 10:49 → OBT 10:49
PROVIDERS: ATTEND Obstetrics & Gynecology
DX: O36.8130 Decreased fetal movements, third trimester, not applicable or unspecified (principal); O60.03 Preterm labor without delivery, third trimester; R03.0 Elevated blood-pressure reading, without diagnosis of hypertension; Z3A.37 37 weeks gestation of pregnancy
CPT/HCPCS: 76818; Z7500; G0463

== ENCOUNTER 2016-06-09 03:13 | Inpatient (IN) | payer MEDICAID ==
[~2016-06-09] VITALS: Ht 154.9 cm; Wt 96.0 kg
[2016-06-09] MEDS ORDERED: LACTATED RINGER'S 1,000 ML IV SCH (03:40)
[2016-06-09 03:58] VITALS: Ht 154.9 cm; Wt 96.0 kg
[2016-06-09] MEDS ORDERED: BUTORPHANOL 2 MG INJ IV PRN (04:00)
[2016-06-09] MEDS ORDERED: LIDOCAINE 1% (MPF) 30 ML INJ INJ PRN (04:00)
[2016-06-09] MEDS ORDERED: OXYTOCIN 30 UNITS/LR 500 ML IV PRN ×2 (04:00→09:00)
[2016-06-09] MEDS ORDERED: OXYTOCIN 30 UNITS/LR 500 ML IV SCH ×3 (04:00→08:30)
[2016-06-09] MEDS ORDERED: LACTATED RINGER'S 1,000 ML IV PRN (04:00)
[2016-06-09] MEDS ORDERED: MISOPROSTOL 200 MCG TAB PR PRN ×2 (04:00→09:00)
[2016-06-09] MEDS ORDERED: CARBOPROST 250 MCG INJ IM PRN ×2 (04:00→09:00)
[2016-06-09] MEDS ORDERED: METHYLERGONOVINE 0.2 MG INJ IM PRN ×2 (04:00→09:00)
[2016-06-09 04:48] LABS: ADD SCAN DIFF NO
[2016-06-09 04:52] LABS: BASOPHILS % 0.3 % (0.0-2.0); EOSINOPHILS # 0.1 10^3/ul (0.0-0.5); EOSINOPHILS % 1.2 % (0.0-7.0); HEMATOCRIT 40.7 % (37.0-47.0); HEMOGLOBIN 13.5 g/dl (12.0-16.0); LYMPHOCYTES # 2.3 10^3/ul (0.8-2.9); MEAN CORPUSCULAR HEMOGLOBIN 28.8 pg (29.0-33.0); MEAN CORPUSCULAR HGB CONC 33.2 g/dl (32.0-37.0); MEAN PLATELET VOLUME 11.2 fl (7.4-10.4); MONOCYTE # 0.5 10^3/ul (0.3-0.9); MONOCYTES % 7.4 % (0.0-11.0); NEUTROPHIL # 3.9 10^3/ul (1.6-7.5); NEUTROPHILS % 57.4 % (39.0-77.0); PLATELET COUNT 196 10^3/UL (140-415); RED BLOOD COUNT 4.68 10^6/ul (4.20-5.40); RED CELL DISTRIBUTION WIDTH 13.4 % (11.5-14.5); WHITE BLOOD COUNT 6.9 10^3/ul (4.8-10.8)
[2016-06-09 05:02] LABS: INR 0.83; PROTIME 11.4 Sec (12.2-14.2); PT RATIO 0.9
[2016-06-09 05:03] LABS: PARTIAL THROMBOPLASTIN TIME 25.7 Sec (25.0-35.0)
[2016-06-09 05:07] LABS: ALBUMIN 3.3 g/dl (3.3-4.9)
[2016-06-09 05:08] LABS: POTASSIUM 3.9 mmol/L (3.5-5.1)
[2016-06-09 05:10] LABS: ALBUMIN/GLOBULIN RATIO 0.94; BILIRUBIN,INDIRECT 0.1 mg/dl (0-1.1); BILIRUBIN,TOTAL 0.1 mg/dl (0.2-1.3); CREATININE 0.5 mg/dl (0.44-1.00); TOTAL PROTEIN 6.8 g/dl (6.1-8.1)
[2016-06-09 05:11] LABS: CALCIUM 8.8 mg/dl (8.4-10.2); URIC ACID 4.6 mg/dl (3.1-7.9)
[2016-06-09 05:19] VITALS: BP 131/79; PULSE 78; RESP 16
[2016-06-09 07:01] LABS: ADD UMIC YES; URINE BILIRUBIN (Dip) NEGATIVE (NEGATIVE); URINE BLOOD (Dip) 1+ (NEGATIVE); URINE COLOR LT. YELLOW (YELLOW); URINE GLUCOSE (Dip) NEGATIVE (NEGATIVE); URINE KETONES (Dip) NEGATIVE (NEGATIVE); URINE LEUKOCYTE ESTERASE (Dip) NEGATIVE (NEGATIVE); URINE NITRITE (Dip) NEGATIVE (NEGATIVE); URINE TOTAL PROTEIN (Dip) 1+ (NEGATIVE); URINE UROBILINOGEN (Dip) 0.2 E.U./dL (0.1-1.0)
--- NOTE | 2016-06-09 07:07 | HP ---
Date/Time of Note Date/Time of Note DATE: 06/09/16 TIME: 07:04 OB - History Hx of Present Free Text/Dictation term gestation in active labor Chief Complaint: contractions Care: Good Care Past Family/Social History * Past Medical, Surgical, Family and Obstetric Histories reviewed from chart. OB Admission Exam Vital Signs Vital Signs Vital Signs Date Time Temp Pulse Resp B/P Pulse Ox O2 Delivery O2 Flow Rate FiO2 06/09/16 05:19 98.0 78 16 131/79 Room Air Physical Exam HEENT: WNL Heart: Rhythm Normal Abdomen: WNL Cervical Dilatation: 5cm Accelerations: Accelerations Present Decelerations: No Decelerations Intensity: Moderate Last 72 hours Lab Results CBC & BMP 06/09/16 04:30 Liver Function Test 06/09/16 04:30 Alanine Aminotransferase (ALT/SGPT) 22 Albumin 3.3 Alkaline Phosphatase 231 H Aspartate Amino Transf (AST/SGOT) 25 Direct Bilirubin 0.00 Total Protein 6.8 OB Assessment/Plan Reason for admission: active labor Plan: Expectant Management Other plan: plan for MEERA CHARLES Jun 09, 2016 07:06
[2016-06-09 07:15] LABS: BACTERIA,URINE RARE; URINE RBCS 0-2 /HPF (0)
[2016-06-09] MEDS: OXYTOCIN 30 UNITS/LR 500 ML IV SCH ×3 (08:19→12:50)
[2016-06-09] MEDS ORDERED: IBUPROFEN 600 MG TAB PO PRN (08:30)
[2016-06-09] MEDS: LACTATED RINGER'S 1,000 ML IV* SCH ×2 (08:32→17:02)
--- NOTE | 2016-06-09 08:40 | LDN ---
Date/Time of Note Date/Time of Note DATE: 06/09/16 TIME: 08:38 Delivery Summary of a viable baby girl weighing 3710 grams, or 8# 3oz, 20" long, and with Apgars of 9/9. Placenta Delivered: Spontaneously Meconium: none Perineum intact?: No Perineal laceration: 2 Perineal laceration repair: SEcond degree perineal laceration repaired with 2-0 chromic. Anesthesia type: None Estimated blood loss: 350 Sponge & Needle done & correct: Yes All needle counts correct: Yes Any foreign bodies felt in the: No (vagina) Problems: Delivery Information Sex Sex: female Apgars 1 Minute: 9 5 Minute: 9 Suctioning Nose & mouth suctioned at jake: No Delee suction performed: No Umbilical Cord Umbilical cord with: 3 Vessels Cord presentations: no nuchal cord Cord Blood was obtained: Yes Mother & Baby Disposition Disposition Mom & Baby to Maternity; Good: Yes Baby to NICU: No KARLA CLARKE MD Jun 09, 2016 08:40
[2016-06-09] MEDS ORDERED: BENZOCAINE 20% 56 ML SPRAY TOP PRN (09:00)
[2016-06-09] MEDS ORDERED: LANOLIN 7 GM TUBE TOP PRN (09:00)
[2016-06-09] MEDS ORDERED: OXYCODONE/ASPIRIN (4.88/325) TAB PO PRN (09:00)
[2016-06-09] MEDS: IBUPROFEN 600 MG TAB PO SCH ×3 (12:22→23:18)
[2016-06-09 14:45] VITALS: BP 105/59; RESP 18
[2016-06-09 20:00] VITALS: BP 101/55; PULSE 76; RESP 18
[2016-06-10] VITALS: BP 110/55; PULSE 72; RESP 18
[2016-06-10] MEDS: LACTATED RINGER'S 1,000 ML IV* SCH (03:00)
[2016-06-10 04:05] VITALS: BP 103/62; PULSE 77; RESP 18
[2016-06-10] MEDS: IBUPROFEN 600 MG TAB PO SCH ×3 (05:30→18:35)
[2016-06-10 05:55] LABS: ADD SCAN DIFF NO
[2016-06-10 06:00] LABS: BASOPHILS % 0.3 % (0.0-2.0); EOSINOPHILS # 0.1 10^3/ul (0.0-0.5); EOSINOPHILS % 1.4 % (0.0-7.0); HEMATOCRIT 35.4 % (37.0-47.0); HEMOGLOBIN 11.6 g/dl (12.0-16.0); LYMPHOCYTES # 2.7 10^3/ul (0.8-2.9); LYMPHOCYTES % 37.2 % (15.0-51.0); MEAN CORPUSCULAR HEMOGLOBIN 28.8 pg (29.0-33.0); MEAN CORPUSCULAR HGB CONC 32.8 g/dl (32.0-37.0); MEAN CORPUSCULAR VOLUME 87.8 fl (82.0-101.0); MONOCYTE # 0.5 10^3/ul (0.3-0.9); MONOCYTES % 6.5 % (0.0-11.0); NEUTROPHILS % 54.1 % (39.0-77.0); PLATELET COUNT 166 10^3/UL (140-415); RED BLOOD COUNT 4.03 10^6/ul (4.20-5.40); RED CELL DISTRIBUTION WIDTH 13.7 % (11.5-14.5); WHITE BLOOD COUNT 7.3 10^3/ul (4.8-10.8)
[2016-06-10 08:30] VITALS: BP 116/71; PULSE 65; RESP 18
--- NOTE | 2016-06-10 11:53 | DS ---
Date/Time of Note Date/Time of Note home next day DATE: 06/10/16 TIME: 11:51 Obstetrical Discharge Record Final Diagnosis Final Diagnosis: Term delivered Other Final Diagnosis S/P vaginal delivery Vaginal Delivery Obstetrical Delivery: Spontaneous, Laceration, Repaired Condition on Discharge Physical Assessment Last Vitals: see nurses notes Voiding: Yes Bowel Movement: Yes Breast: Soft, non-tender, Filling Fundus: Firm Abdomen and Incision: soft BS + Episiotomy: NA perineum healing Calf Tenderness: No Patient Condition: Good SAM SANDY MD Jun 10, 2016 11:53
[2016-06-10 16:34] VITALS: BP 115/70; PULSE 66; RESP 18
[2016-06-10 19:30] VITALS: BP 121/64; PULSE 81; RESP 19
[2016-06-11 04:00] VITALS: BP 103/56; PULSE 56; RESP 18
[2016-06-11] MEDS: IBUPROFEN 600 MG TAB PO SCH ×4 (05:24→17:45)
[2016-06-11 08:00] VITALS: BP 124/75; PULSE 59; RESP 18
[2016-06-11] MEDS ORDERED: DIPHTH/TET/ACEL PERTUSS (ADULT) 0.5 ML VIAL IM* ONE (09:00)
--- NOTE | 2016-06-11 15:09 | PD.PPDC ---
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
[2016-06-11] MEDS ORDERED: IBUP-1542 PO (15:10)
[2016-06-11 16:30] VITALS: BP 130/75; PULSE 65; RESP 19
== END 2016-06-11 18:59 | disposition home or self-care (01) | DRG 775 ==
LOC: OBT 03:13 → L-D 03:14 → OBT 03:36 → L-D 03:37 → PP1 15:22
PROVIDERS: ADMIT Obstetrics & Gynecology; ATTEND Obstetrics & Gynecology
PROC: 10E0XZZ Delivery of Products of Conception, External Approach (ICD-10-PCS; principal; 2016-06-09)
PROC: 0KQM0ZZ Repair Perineum Muscle, Open Approach (ICD-10-PCS; 2016-06-09)
DX: O70.1 Second degree perineal laceration during delivery (principal); Z37.0 Single live birth; Z3A.00 Weeks of gestation of pregnancy not specified
CPT/HCPCS: 80053; 81001; 81003; 84560; 85025; 85384; 85610; 85730; 86592; 86900; 86901; 90715; G0463; J2590; J7120